=== PATIENT | female | born 1930 | race Caucasian/White ===

== ENCOUNTER 2016-08-14 14:53 | Emergency (ER) | payer MEDICARE ==
[~2016-08-14] VITALS: Ht 175.3 cm; Wt 68.0 kg
[~2016-08-14 14:53] MED LIST: HYDR-3326 PO; METO50TA3 PO; WARF2.5T6 PO; Zolpidem Tartrate PO
[2016-08-14 15:18] VITALS: BP 106/61
== END 2016-08-14 15:51 | disposition home or self-care (01) ==
LOC: ER 14:55
DX: H66.92 Otitis media, unspecified, left ear (principal); H60.92 Unspecified otitis externa, left ear; I10 Essential (primary) hypertension; I48.91 Unspecified atrial fibrillation; Z79.01 Long term (current) use of anticoagulants; Z79.02 Long term (current) use of antithrombotics/antiplatelets; Z86.73 Personal history of transient ischemic attack (TIA), and cerebral infarction without residual deficits
CPT/HCPCS: 99283; A4606; Z7610

== ENCOUNTER 2017-07-24 16:37 | Inpatient (IN) | payer MEDICARE ==
[~2017-07-24] VITALS: Ht 175.3 cm; Wt 75.0 kg
[2017-07-24] VITALS (7 sets, daily range): BP systolic 96–121; BP diastolic 56–67
[~2017-07-24 16:37] MED LIST changes: -HYDR-3326 PO; +HYDR-3974 PO; +METO50TA16 PO; -METO50TA3 PO; -WARF2.5T6 PO; +WARF2.5T85 PO
--- NOTE | 2017-07-24 16:43 | NUR ---
BIBRA C/O LEFT SIDED RIB PAIN S/P GLF ATTEMPTING TO SIT ON COMMODE. PATIENT IS A/OX 2, BREATHING EVEN AND UNLABORED. NO SOB, NAD, VITALS STABLE. NO OTHER COMPLAINTS AT THIS TIME. SAFETY AND COMFORT MEASURES IN PLACE. AWAITING MD ORDERS.
[2017-07-24] MEDS ORDERED: ACETAMINOPHEN W/ CODEINE#3 1 EA TABLET ONE (16:57)
--- NOTE | 2017-07-24 16:59 | NUR ---
PT MEDICATED PER MD'S ORDERS. PT RESTING IN BED WITH NO S/S OF DISTRESS NOTED. PT SAFETY AND COMFORT MEASURES IN PLACE. PT'S BEDSIDE. CALL LIGHT PLACED WITHIN REACH. BED PLACED IN LOWEST POSITION WITH SIDE RAILS RAISED. WILL CONTINUE TO MONITOR
[2017-07-24] MEDS ORDERED: ACETAMINOPHEN W/ CODEINE#3 1 EA TABLET PO ONE (17:00)
--- NOTE | 2017-07-24 17:19 | NUR ---
RADIOLOGY BEDSIDE FOR X-RAY
--- NOTE | 2017-07-24 17:35 | NUR ---
NEW IV STARTED ON RAC, 18G. BLOOD DRAWN AND SENT TO LAB.
[2017-07-24] MEDS ORDERED: ONDANSETRON HCL/PF 4 MG/2 ML VIAL ONE (17:36)
[2017-07-24] MEDS ORDERED: MORPHINE SULFATE INJ 4 MG/ML DISP.SYRIN ONE ×2 (17:36→19:27)
--- NOTE | 2017-07-24 17:37 | NUR ---
PT MEDICATED PER MD PRINCE'S ORDERS. PT RESTING IN BED WITH NO S/S OF DISTRESS NOTED.
[2017-07-24 17:38] LABS: BASOPHILS # (AUTO) 0.2 /CMM (0.0-0.2); BASOPHILS % (AUTO) 2.3 % (0.0-2.0); EOSINOPHILS % (AUTO) 0.4 % (0.0-6.0); HEMATOCRIT 46 % (33-45); HEMOGLOBIN 15.7 g/dL (11.5-14.8); LYMPHOCYTES # (AUTO) 0.8 /CMM (0.8-4.8); LYMPHOCYTES % (AUTO) 8.3 % (20.0-44.0); MEAN CORPUSCULAR HGB CONC 34 g/dl (31.0-36.0); MEAN CORPUSCULAR VOLUME 87 fL (82-100); MONOCYTES # (AUTO) 0.2 /CMM (0.1-1.30); MONOCYTES % (AUTO) 2.2 % (2.0-12.0); NEUTROPHILS # (AUTO) 8.1 /CMM (1.8-8.9); NEUTROPHILS % (AUTO) 86.8 % (43.0-81.0); PLATELET COUNT (AUTO) 117 /CMM (150-450); RDW COEFFICIENT OF VARIATION 13.8 (11.5-15.0); RED BLOOD CELL COUNT(AUTO) 5.34 MIL/uL (4.0-5.2); WHITE BLOOD COUNT (AUTO) 9.3 K/uL (4.3-11.0)
[2017-07-24] MEDS ORDERED: WARF3TAB59 PO (17:47)
[2017-07-24] MEDS ORDERED: METO25TA20 PO (17:47)
[2017-07-24 17:48] LABS: CARBON DIOXIDE 29 mmol/L (21-32); CHLORIDE 101 mmol/L (98-107); CREATININE 0.7 mg/dL (0.6-1.3); GLUCOSE 142 mg/dL (74-106); POTASSIUM 4.2 mmol/L (3.5-5.1); SODIUM SERUM 137 mmol/L (136-145); UREA NITROGEN, BLOOD 15 mg/dL (7-18)
[2017-07-24 17:52] LABS: INR 2.2 (0.85-1.15)
--- NOTE | 2017-07-24 17:52 | NUR ---
CALLED [facility] [employer] FLARING MACHINE OPERATOR WAS PAGED.
[2017-07-24] MEDS ORDERED: MORPHINE SULFATE INJ 2 MG/ML DISP.SYRIN IV ONE ×2 (18:00→20:00)
[2017-07-24] MEDS ORDERED: ONDANSETRON HCL/PF 4 MG/2 ML VIAL IVP ONE (18:00)
--- NOTE | 2017-07-24 18:04 | NUR ---
REPORT GIVEN TO RESEARCH MANUFACTURING OPERATOR FOR DERRICK
--- NOTE | 2017-07-24 18:17 | NUR ---
RECEIVED CALL FROM RADIOLOGIST, DR PRINCE ON PHONE WITH THE RADIOLOGIST
--- NOTE | 2017-07-24 18:20 | NUR ---
PER MD, CHEST TUBE DRAINAGE SETUP IR REQUIRED. EMT'S NOTIFIED TO SET UP KIT BEDSIDE.
--- NOTE | 2017-07-24 18:25 | NUR ---
CHEST TUBE SETUP BEDSIDE. DR SANTO BEDSIDE WITH PT
[2017-07-24] MEDS ORDERED: ETOMIDATE 2 MG/ML VIAL ONE (18:29)
--- NOTE | 2017-07-24 18:40 | NUR ---
PT GIVEN TOTAL OF 10MG ETOMIDATE FOR CHEST TUBE INSERTION PER MD PRINCE. PT WAS PLACED ON NR 15L/M PRIOR TO PROCEDURE PER .
--- NOTE | 2017-07-24 18:50 | NUR ---
CHEST TUBE PERFORMED BY DR PRINCE. PER ' ETOMIDATE USED DURING PROCEDURE. PER MD, NO RESPIRATORY THERAPIST REQUIRED. TOTAL OF 10MG OF ETOMIDATE GIVEN TO PT PER MD PRINCE'S ORDERS. SUCCESSFUL CHEST TUBE INSERTION. RADIOLOGY BEDSIDE FOR CHEST X-RAY. CHEST TUBE SECURED TO PT. CHEST TUBE DRAINAGE SET UP AND HANGING BELOW PT'S LEVEL ON THE SIDE OF BED. 200ML OF BRIGHT RED BLOOD DRAINED OUT INTO DRAINAGE SYSTEM. MD MADE AWARE. PT SAFETY AND COMFORT MEASURES IN PLACE. SIDE RAILS RAISED. VSS. WILL CONTINUE TO MONITOR.
[2017-07-24] MEDS ORDERED: MORPHINE SULFATE INJ 2 MG/ML DISP.SYRIN IV PRN (19:00)
[2017-07-24] MEDS ORDERED: ZOLPIDEM TARTRATE 5 MG TABLET PO PRN (19:00)
[2017-07-24] MEDS ORDERED: MORPHINE SULFATE INJ 2 MG/ML DISP.SYRIN IM PRN (19:00)
[2017-07-24] MEDS ORDERED: ETOMIDATE 2 MG/ML VIAL IV ONE (19:00)
[2017-07-24] MEDS ORDERED: ONDANSETRON HCL/PF 4 MG/2 ML VIAL IVP PRN (19:00)
[2017-07-24] MEDS ORDERED: MAG HYDROX/AL HYDROX/SIMETH 30 ML UDC PO PRN (19:00)
[2017-07-24] MEDS ORDERED: MAGNESIUM HYDROXIDE 30 ML UDC PO PRN (19:00)
[2017-07-24] MEDS ORDERED: Z GUARD REMEDY 2 OZ OINT TP PRN (19:00)
--- NOTE | 2017-07-24 19:30 | NUR ---
PER MD PRINCE, VERBAL ORDER FOR MORPHINE 4 MG IV REQUESTED TO BE GIVEN TO PT. PT MEDICATED PER MD'S ORDERS.
--- NOTE | 2017-07-24 19:38 | NUR ---
Patient is resting comfortably in bed with eyes closed. Easily aroused. VSS.
--- NOTE | 2017-07-24 20:04 | NUR ---
REPORT GIVEN TO ACQUISITION LEAD ARA FOR DERRICK.
--- NOTE | 2017-07-24 20:18 | NUR ---
GEODETIC SURVEYOR TECHNOLOGISTHISTOTECHNICIAN NOTES RECEIVED PATIENT FROM ER VIA GURNEY, TRANSFERRED TO BED IN ROOM 261. PATIENT PLACED ON TELEMETRY MONITORING, REVEALING AFIB/AFLUTTER, HR = 130 AT THIS TIME. BREATHING EVEN AND NONLABORED, O2 PLACED VIA NC @ 2LPM. NOTED WITH LEFT SIDED, ANTERIOR CHEST TUBE, CONNECTED TO SUCTION ORDERED. SITE ASSESSED, DRESSING C/D/I. RIGHT AC #18 GAUGE PERIPHERAL IV FLUSHED WITH NS, SITE FREE FROM ANY S/S OF INFILTRATION OR PHLEBITIS. PLAN OF CARE DISCUSSED WITH THE PATIENT, WHO VERBALIZES UNDERSTANDING AT THIS TIME. CALL LIGHT LEFT WITHIN EASY REACH, BED IN LOWEST AND LOCKED POSITION. WILL CONTINUE TO CLOSELY MONITOR
[2017-07-24] MEDS: FENTANYL PF 100MCG/2ML AMPUL IV PRN (21:25)
[2017-07-25] VITALS (41 sets, daily range): BP systolic 85–123; BP diastolic 38–72
[2017-07-25] MEDS: FENTANYL PF 100MCG/2ML AMPUL IV PRN ×3 (03:15→12:58)
[2017-07-25 04:58] LABS: CALCIUM, SERUM 8.5 mg/dL (8.5-10.1); CARBON DIOXIDE 26 mmol/L (21-32); CHLORIDE 104 mmol/L (98-107); CREATININE 0.7 mg/dL (0.6-1.3); GLUCOSE 132 mg/dL (74-106); MAGNESIUM 2.1 mg/dL (1.8-2.4); PHOSPHORUS 4.1 mg/dL (2.5-4.9); POTASSIUM 4.3 mmol/L (3.5-5.1); SODIUM SERUM 137 mmol/L (136-145); UREA NITROGEN, BLOOD 17 mg/dL (7-18)
[2017-07-25 05:28] LABS: INR 2.21 (0.87-1.13)
[2017-07-25 05:50] LABS: EOSINOPHILS % (AUTO) 0.1 % (0.0-6.0); HEMOGLOBIN 13.6 g/dL (11.5-14.8); LYMPHOCYTES # (AUTO) 0.5 /CMM (0.8-4.8); PLATELET COUNT (AUTO) 79 /CMM (150-450)
[2017-07-25 06:01] LABS: BASOPHILS % (AUTO) 0.1 % (0.0-2.0); HEMATOCRIT 39 % (33-45); MEAN CORPUSCULAR HGB CONC 35 g/dl (31.0-36.0); MEAN CORPUSCULAR VOLUME 87 fL (82-100); MONOCYTES # (AUTO) 0.9 /CMM (0.1-1.30); MONOCYTES % (AUTO) 10.1 % (2.0-12.0); NEUTROPHILS # (AUTO) 7.3 /CMM (1.8-8.9); NEUTROPHILS % (AUTO) 83.7 % (43.0-81.0); RDW COEFFICIENT OF VARIATION 14.6 (11.5-15.0); RED BLOOD CELL COUNT(AUTO) 4.52 MIL/uL (4.0-5.2); WHITE BLOOD COUNT (AUTO) 8.8 K/uL (4.3-11.0)
[2017-07-25 06:05] LABS: LYMPHOCYTES % (MANUAL) 3 % (16-48); MONOCYTES % (MANUAL) 9 % (0-11.0); NEUTROPHILS % (MANUAL) 88 (42-76)
--- NOTE | 2017-07-25 07:00 | NUR ---
BUHR MILL OPERATOR CLOSING NOTES PATIENT SLEEPING IN BED, APPEARS COMFORTABLE. NO ACUTE CHANGES THROUGHOUT THE SHIFT, PAIN MANAGED WITH CURRENT ORDERS. WILL ENDORSE THE PATIENT TO THE AM SHIFT NURSE FOR DERRICK
[2017-07-25] MEDS: METOPROLOL TARTRATE 25 MG TABLET PO SCH ×2 (08:28→17:46)
[2017-07-25] MEDS: IV NS 0.9% 1,000 ML IV PRN (09:50)
[2017-07-25 10:42] LABS: THYROID STIMULATING HORMONE 3.765 uIU/mL (0.358-3.74)
[2017-07-25] MEDS: DIGOXIN 0.25 MG TABLET PO SCH (12:56)
[2017-07-25] MEDS: HYDROMORPHONE HCL 2 MG TABLET PO PRN ×2 (14:39→21:09)
--- NOTE | 2017-07-25 16:23 | NUR ---
RN NOTE PT CHEST TUBE IN PLACE, DRAINING BLOODY FLUID, TO LIS, PAIN MEDICINE CHANGED TO DILAUDID, 4 MG PO, 2 UNITS PLASMA ORDERED, 1 INFUSED, TOLERATED WELL, 2ND UNIT IS INFUSING. PT HAD NO URINE OUTPUT SINCE MORNING, BLADDER SCAN SHOWED RESIDUAL OF >700 ML, MARTINEZ CATH INSERTED, MD NOTIFIED. SAFETY MEASURES IMPLEMENTED, CALL LIGHT WITHIN REACH, WILL MONITOR.
--- NOTE | 2017-07-25 17:00 | NUR ---
RN NOTE REPORT GIVEN TO DAVIN HOLLAND, FOR DERRICK. PT STABLE.
--- NOTE | 2017-07-25 19:07 | NUR ---
RN NOTES PT RESTING IN BED COMFORTABLY, VERBALIZED PAIN RELIEF AFTER DILAUDID PRN WAS GIVEN TO HER. AFIB ON DYEING MACHINE TENDER. NO LEAKING NOTED ON CHEST TUBE DRAINAGE SITE. S/P 2 UNITS FFP GIVEN, NO TRANSFUSION REACTION NOTED. ALL DUE MEDS GIVEN, PT WITH POOR PO INTAKE. REPORT GIVEN TO NURSE JAIMES FOR CONTINUITY OF CARE
--- NOTE | 2017-07-25 20:30 | NUR ---
ICU/WEB PROJECT MANAGER STARTED NEW IV TO THE LEFT EXTERNAL JUGULAR, FLUSHES WELL.
--- NOTE | 2017-07-25 21:09 | NUR ---
ICU/DIGITAL LEARNING PLATFORMS MANAGER DILAUDID 4MG PO GIVEN FOR PAIN RATED 10/10 TO CHEST TUBE SITE. CALL LIGHT WITHIN REACH, PT WAS REPOSITIONED FOR COMFORT AND CARE.
[2017-07-26] VITALS (60 sets, daily range): BP systolic 59–152; BP diastolic 40–85
[2017-07-26] MEDS: IV NS 0.9% 1,000 ML IV PRN ×3 (00:04→18:44)
[2017-07-26] MEDS: HYDROMORPHONE HCL 2 MG TABLET PO PRN (03:20)
--- NOTE | 2017-07-26 03:30 | NUR ---
ICU/MICROBIOLOGY QUALITY CONTROL TECHNICIAN DILAUDID 4MG WAS GIVEN POST BATH, PT WAS YELLING AND CRYING AFTER BATH. PT ALSO HAD INCREASE HEART RATE 150'S. PT WAS TURNED AND REPOSITIONED FOR COMFORT AND CARE.
--- NOTE | 2017-07-26 04:10 | NUR ---
ICU/SALARY MANAGER PT'S SATURATION FELL TO 70'S WITH GOOD WAVE FORM, NON-REBREATHER MASK PLACED ON PT ALSO CHANGED OUT THE O2 PULSE OX. WILL CONTINUE TO MONITOR THIS PT.
[2017-07-26 04:36] LABS: BASOPHILS % (AUTO) 0.1 % (0.0-2.0); EOSINOPHILS % (AUTO) 0.1 % (0.0-6.0); HEMATOCRIT 32 % (33-45); HEMOGLOBIN 11.2 g/dL (11.5-14.8); LYMPHOCYTES # (AUTO) 0.5 /CMM (0.8-4.8); LYMPHOCYTES % (AUTO) 4.9 % (20.0-44.0); MEAN CORPUSCULAR HGB CONC 35 g/dl (31.0-36.0); MEAN CORPUSCULAR VOLUME 88 fL (82-100); MONOCYTES # (AUTO) 0.9 /CMM (0.1-1.30); NEUTROPHILS # (AUTO) 8.7 /CMM (1.8-8.9); NEUTROPHILS % (AUTO) 85.9 % (43.0-81.0); PLATELET COUNT (AUTO) 113 /CMM (150-450); RED BLOOD CELL COUNT(AUTO) 3.65 MIL/uL (4.0-5.2); WHITE BLOOD COUNT (AUTO) 10.1 K/uL (4.3-11.0)
--- NOTE | 2017-07-26 04:45 | NUR ---
ICU/SPECIAL EVENTS FUNDRAISER AM LABS WERE DRAWN AND CHEST XRAY WAS DONE, AWAIT LAB VALUES.
[2017-07-26 04:52] LABS: ALANINE AMINOTRANSFERASE 47 U/L (12-78); ALKALINE PHOSPHATASE 56 U/L (46-116); ASPARTATE AMINOTRANSFERASE 44 U/L (15-37); BILIRUBIN,TOTAL 1.4 mg/dL (0.2-1.0); CALCIUM, SERUM 8.1 mg/dL (8.5-10.1); CARBON DIOXIDE 29 mmol/L (21-32); CHLORIDE 104 mmol/L (98-107); CREATININE 0.6 mg/dL (0.6-1.3); GLUCOSE 129 mg/dL (74-106); MAGNESIUM 2.1 mg/dL (1.8-2.4); PHOSPHORUS 2.8 mg/dL (2.5-4.9); POTASSIUM 4.4 mmol/L (3.5-5.1); SODIUM SERUM 138 mmol/L (136-145); TOTAL PROTEIN, SERUM 6.6 g/dL (6.4-8.2); UREA NITROGEN, BLOOD 20 mg/dL (7-18)
--- NOTE | 2017-07-26 05:55 | NUR ---
ICU/FIELD REPRESENTATIVE/HEALTH EDUCATION CHANGED PT FROM NON-REBREATHER MASK TO A SIMPLE MASK, PT'S SATURATION IS 100%. WILL CONTINUE TO MONITOR PT'S SATURATION. PT WAS TURNED AND REPOSITIONED FOR COMFORT AND CARE.
--- NOTE | 2017-07-26 07:15 | NUR ---
MEAT BUTCHER NOTES RECEIVED PATIENT UNAROUSABLE TO DEEP PAIN STIMULI , ON 7 LPM SIMPLE MASK SPO2 OF 100% NOT IN ACUTE DISTRESS , RESPIRATIONS EVEN AND UNLABORED , AFIB 130'S ON BEDSIDE MONITOR , FC DRAINING VIA GRAVITY WITH CLEAR YELLOW URINE , IV OF L EJ # 20 WITH NS @ 125ML/HR INFUSING WELL , R AC # 18 PATENT AND INTACT SL , ALL NEEDS ATTENDED , BED ON LOW AND LOCKED POSITION , SIDE RAILS X2 ,CALL LIGHT WITHIN REACH , HOB @ 35 , WILL CONTINUE TO MONITOR .
--- NOTE | 2017-07-26 07:50 | NUR ---
INSPECTOR OF WEIGHTS AND MEASURES NOTES PATIENT REMAINS UNRESPONSIVE TO DEEP PAIN STIMULI , ABG ORDERED , RT AT BEDSIDE, WILL CONTINUE TO MONITOR
[2017-07-26 08:03] LABS: ABG BASE EXCESS -2.3 mmol/L; ABG OXYGEN SATURATION 98.2 % (92.0-98.5); ABG PCO2 144.2 mmHg (35.0-45.0); ABG PH 6.974 (7.350-7.450); AaDO2 83.2 mmHg; COHb 0.2 % (0.5-1.5); MetHb 1.2 % (0.0-1.5); O2Hb 96.8 % (94.0-97.0); SITE, ABG Right Radial; VENT MODE, BG simple mask
--- NOTE | 2017-07-26 08:10 | NUR ---
RECYCLABLE MATERIALS COLLECTOR NOTES ABG RESULT RELAYED TO DR BYRNE , NOTIFIED PATIENT V/S AND NEUROLOGICAL STATUS , AWAITING FOR ORDERS
--- NOTE | 2017-07-26 08:30 | NUR ---
ED MANAGER NOTES 0830 CALLED ER MD FOR INTUBATION DUE TO ABNORMAL ABG , 0835 ER MD AT BEDSIDE , DISCUSSED LABS , ABG RESULT , AND REASON FOR INTUBATION , RT SABI AT BEDSIDE , WAS PLACED SUCCESSFULLY BY ER MD , PLACEMENT CHECK VIA AUSCULTATION POSITIVE BREATH SOUNDS BILATERALLY POSITIVE END TIDAL CO2 , XRAY STAT OBTAINED TO CONFIRM PLACEMENT SPO2 OF 100% VIA MECHANICAL VENT SETTINGS ORDERED , SUCTION SMALL THIN SECRETIONS PINK TINGED IN COLOR , BILATERAL SOFT WRIST RESTRAINTS PLACED ORDERED . OGT PLACED , PLACEMENT CHECK VIA AUSCULTATION VERIFIED BY ANOTHER RN BEATRIZ .
--- NOTE | 2017-07-26 09:47 | NUR ---
DATE PITTER NOTES PAGED DR SANTO DUE TO SBP OF 60-70'S S/P INTUBATION , AWAITING FOR CALL BACK
--- NOTE | 2017-07-26 09:49 | NUR ---
HOUSEHOLD COOK NOTES SPOKE WITH DR OLCK , DISCUSSED PT S/P INTUBATION , SBP OF 60-70'S , HR OG 105-130 AFIB , PER MD START PT ON NEOSYNEPRINE TO KEEP SBP ABOVE 90 AND PICCLINE / CENTRAL LINE INSERTION , ORDERS CARRIED OUT
--- NOTE | 2017-07-26 10:12 | NUR ---
BREAKER OILER NOTES SEEN AND EVALUATED BY DR SANTO ,DISCUSSED LABS , CHEST XRAY RESULT , CURRENT V/S , WILL START PT ON NEOSYNEPRINE DUE TO SBP OF 60-[address] LOCK , LEFT SIDED CHEST TUBE DRAINING VIA -20 SUCTION DRAINING WITH BLOODY OUTPUT , S/P INTUBATION DISCUSSED ABG RESULTS ON 7LPM MASK , PT WAS NON RESPONSIVE @ 0700 , PER MD REPEAT CBC STAT .
[2017-07-26 10:22] LABS: ABG BASE EXCESS -1.8 mmol/L; ABG OXYGEN SATURATION 98.5 % (92.0-98.5); ABG PCO2 36.8 mmHg (35.0-45.0); ABG PH 7.405 (7.350-7.450); ABG PO2 178.7 mmHg (75.0-100.0); AaDO2 136.4 mmHg; COHb 0.3 % (0.5-1.5); MetHb 0.4 % (0.0-1.5); O2Hb 97.8 % (94.0-97.0); SITE, ABG Right Radial; VT, ABG 500 mL
[2017-07-26] MEDS: PHENYLEPHRINE 40 MG in IV D5W 250 ML IV PRN ×2 (10:26→18:44)
[2017-07-26 10:34] LABS: HEMATOCRIT 32 % (33-45); HEMOGLOBIN 10.6 g/dL (11.5-14.8); LYMPHOCYTES # (AUTO) 0.6 /CMM (0.8-4.8); LYMPHOCYTES % (AUTO) 4.7 % (20.0-44.0); MEAN CORPUSCULAR HGB CONC 34 g/dl (31.0-36.0); MEAN CORPUSCULAR VOLUME 89 fL (82-100); MONOCYTES # (AUTO) 1.7 /CMM (0.1-1.30); MONOCYTES % (AUTO) 13.1 % (2.0-12.0); NEUTROPHILS # (AUTO) 10.5 /CMM (1.8-8.9); NEUTROPHILS % (AUTO) 82.2 % (43.0-81.0); PLATELET COUNT (AUTO) 107 /CMM (150-450); RED BLOOD CELL COUNT(AUTO) 3.53 MIL/uL (4.0-5.2); WHITE BLOOD COUNT (AUTO) 12.8 K/uL (4.3-11.0)
[2017-07-26] MEDS: METOPROLOL TARTRATE 25 MG TABLET PO SCH ×2 (10:41→16:36)
--- NOTE | 2017-07-26 11:04 | NUR ---
DIRECTOR OF GRADUATE ADMISSIONS NOTES SEEN AND EVALUATED BY DR BYRNE , DISCUSSED ABG RESULT PRE AND POST INTUBATION , REPEAT CBC RESULT , AND CURRENT VENT SETTINGS , PER MD CHANGE SETTINGS TO RATE OF 10 TV 450 FIO2 TITRATE TO KEEP SPO2 ABOVE 94 AND PEEP OF 0 ,CHEST TUBE DRAINING WITH BLOODY OUTPUT VIA -20 INT SUCTION , ORDERS CARRIED OUT .
[2017-07-26] MEDS: DIGOXIN 0.25 MG TABLET PO SCH (13:34)
[2017-07-26] MEDS: SOD FERRIC GLUC 125 MG in IV NS 0.9% 100 ML IV SCH (14:28)
--- NOTE | 2017-07-26 15:00 | NUR ---
JEWEL STRIPPER NOTES NOTIFIED DR SANTO THAT PT HAVING LOW URINE OUTPUT TOTAL OF 50-70ML SINCE 0700 VIA FC , PT ON NS @ 75ML/HR , BLADDER NOT DISTENDED , MD AWARE . NO NEW ORDERS RECEIVED VERIFIED WITH DR BYRNE IF HE WANTS TO START SEDATING THE PATIENT , WHEN PT IS AWAKE , PER MD START PT ON ATIVAN 1MG Q3 PRN , ORDERS CARRIED OUT PICC LINE NURSE AT BEDSIDE , FOR PICC RE INSERTION
[2017-07-26] MEDS: LORAZEPAM INJ 2 MG/ML VIAL IV PRN (17:47)
--- NOTE | 2017-07-26 19:42 | NUR ---
sarmad pt. blood tinged secretions. dora hayward aware. Addendum: 07/26/17 at 2118 by SANJEEV SCHWARTZ RT Amended: Links added.
--- NOTE | 2017-07-26 19:45 | NUR ---
PT RCVD ORALLY INTUBATED WITH 7.5 ET TUBE 25CM @ LIP. PT ON MECHANICAL VENT. SUCTION DONE T/O SHIFT. AMBU BAG AT BEDSIDE. VENT PLUGGED INTO RED OUTLET. ALARMS ARE ON AND AUDIBLE. Addendum: 07/27/17 at 0237 by SANJEEV SCHWARTZ RT Amended: Links added.
--- NOTE | 2017-07-26 22:38 | NUR ---
ICU/BOARD OPERATOR PT'S BLOOD PRESSURE STABLE REMAINS AT 120'S FOR THE HOUR, CHARGE NURSE NOTIFIED DECREASED DAE TO 20MCG FROM 30MCG BY CHARGE NURSE. WILL CONTINUE TO MONITOR THIS PT. PT WAS TURNED AND REPOSITIONED FOR COMFORT AND CARE.
[2017-07-27] VITALS (92 sets, daily range): BP systolic 78–135; BP diastolic 37–86
[2017-07-27] MEDS: HYDROMORPHONE HCL 2 MG TABLET PO PRN (01:17)
--- NOTE | 2017-07-27 01:39 | NUR ---
ICU/CASINO SLOT SUPERVISOR PT'S HEART RATE INCREASED TO 120'S TO 130'S, PT APPEARED TO BE IN PAIN, DILAUDID 4MG GIVEN VIA O-GT. PT WAS TURNED AND REPOSITIONED FOR COMFORT AND CARE. WILL MONITOR PT PAIN
--- NOTE | 2017-07-27 03:50 | NUR ---
ICU/WEB DESIGNER DEVELOPER AM LABS WERE DRAWN ALONG WITH CHEST XRAY, AWAIT ANY CRITICAL LAB VALUES
[2017-07-27 04:34] LABS: BASOPHILS % (AUTO) 0.1 % (0.0-2.0); EOSINOPHILS % (AUTO) 0.1 % (0.0-6.0); HEMATOCRIT 28 % (33-45); HEMOGLOBIN 9.7 g/dL (11.5-14.8); LYMPHOCYTES # (AUTO) 0.5 /CMM (0.8-4.8); LYMPHOCYTES % (AUTO) 5.9 % (20.0-44.0); MEAN CORPUSCULAR HGB CONC 35 g/dl (31.0-36.0); MEAN CORPUSCULAR VOLUME 87 fL (82-100); MONOCYTES % (AUTO) 10.7 % (2.0-12.0); NEUTROPHILS # (AUTO) 7.5 /CMM (1.8-8.9); NEUTROPHILS % (AUTO) 83.2 % (43.0-81.0); PLATELET COUNT (AUTO) 94 /CMM (150-450); RDW COEFFICIENT OF VARIATION 14.8 (11.5-15.0); RED BLOOD CELL COUNT(AUTO) 3.21 MIL/uL (4.0-5.2)
[2017-07-27 04:59] LABS: CALCIUM, SERUM 7.7 mg/dL (8.5-10.1); CARBON DIOXIDE 25 mmol/L (21-32); CHLORIDE 105 mmol/L (98-107); CREATININE 1.7 mg/dL (0.6-1.3); GLUCOSE 123 mg/dL (74-106); MAGNESIUM 1.9 mg/dL (1.8-2.4); PHOSPHORUS 2.7 mg/dL (2.5-4.9); POTASSIUM 4.1 mmol/L (3.5-5.1); SODIUM SERUM 139 mmol/L (136-145); UREA NITROGEN, BLOOD 40 mg/dL (7-18)
[2017-07-27] MEDS: LORAZEPAM INJ 2 MG/ML VIAL IV PRN (05:19)
--- NOTE | 2017-07-27 05:30 | NUR ---
ICU/WOODWORKING CRAFTSMAN PT BECAME RESTLESS WITH INCREASED HEART RATE TO 130'S AFTER RT WAS IN ROOM GIVING BREATHING TREATMENT ALONG WITH ORAL CARE. CHARGE NURSE NOTIFIED AND ATIVAN 1MG GIVEN IVP. PT WAS THEN TURNED AND REPOSITIONED FOR COMFORT AND CARE. WILL MONITOR THIS PT.
--- NOTE | 2017-07-27 06:10 | NUR ---
ICU/SWITCH REPAIRER PT'S BLOOD PRESSURE DECREASED TO 70'S THEN RECYCLED TO 80'S, NOTIFIED CHARGE NURSE DAE WAS INCREASED TO 40MCG. WILL CONTINUE TO MONITOR THE BLOOD PRESSURE. PT AT THE TIME HAS NO ACUTE DISTRESS, APPEARS MORE COMFORTABLE WITH HEART RATE 80'S TO 90'S FROM EARLIER 120'S.
[2017-07-27] MEDS: IV NS 0.9% 1,000 ML IV PRN ×2 (06:12→16:03)
[2017-07-27 06:34] LABS: INR 1.49 (0.87-1.13)
--- NOTE | 2017-07-27 07:15 | NUR ---
RAYON WINDER NOTES RECEIVED PATIENT RESPONSIVE TACTILE STIMULI , SQUIRMING, NOT IN ACUTE DISTRESS , RESPIRATIONS EVEN AND UNLABORED WITH SPO2 OF 100% VIA MECHANICAL VENT SETTINGS ORDERED , ETT 7.5/[address] , LEFT SIDED CHEST TUBE DRAINING VIA NEGATIVE 20 SUCTION ATTACHED TO LOW INTERMITTENT WALL SUCTION ORDERED DRAINING WITH BLOODY OUTPUT , DYLAN CLAMP AT BESIDE , AFIB 85 ON BEDSIDE MONITOR , FC DRAINING VIA GRAVITY WITH CLEAR YELLOW URINE , IV OF L EJ # 20 PATENT AND INTACT SL , ЕКАТЕРИНА PICC LINE WITH NEOSYNPERINE @ 40MCG/MIN AND NS @ 75ML/HR INFUSING WELL , ALL NEEDS ATTENDED , BED ON LOW AND LOCKED POSITION , SIDE RAILS X2 ,CALL LIGHT WITHIN REACH , HOB @ 35 , WILL CONTINUE TO MONITOR
--- NOTE | 2017-07-27 07:17 | NUR ---
FALL INTERNSHIP NOTES SEEN AND EVALUATED BY DR LOCK , NOTIFIED PT STILL ON NEOSYNEPRINE @ 40MCG/MIN , PATIENT AWAKE FOLLOW COMMANDS , WITH LOW URINE OUTPUT , AWARE
[2017-07-27] MEDS: METOPROLOL TARTRATE 25 MG TABLET PO SCH (08:20)
--- NOTE | 2017-07-27 09:09 | NUR ---
CARPET JACK NOTES SEEN AND EVALUATED BY DR SANTO , DISCUSSED LABS , CHEST XRAY , CURRENT V/S AFEBRILE , ON NEOSYNEPRIBNE @ 40MCG/MIN , URINE OUTPUT OF 200ML FOR 24 HOURS , CHEST TUBE DRAINING VIA NEGATIVE 20 VIA LOW INT SUCTION WALL , TOTAL OF 200ML BLOODY OUTPUT FOR 24 HOURS , BILATERAL FOOT COLD TO TOUCH WITH DISCOLORATIONS BILATERAL DORSALIS PEDIS PULSES ARE PALPABLE , AWARE
--- NOTE | 2017-07-27 10:37 | NUR ---
REEL AND REWINDER OPERATOR NOTES SEEN AND EVALUATED BY DR BYRNE , DISCUSSED LABS , CHEST XRAY AND CURRENT V/S , AFEBRILE , ON NEOSYNEPRINE @ 40MCG/MIN , RESPONSIVE TO PAIN STIMULI , UNABLE TO DO SIMV PT IS TOO SEDATED LAST ATIVAN GIVEN WAS AT 0520AM , CHEST TUBE DRAINING TOTAL OF 200ML BLOODY OUTPUT FOR 24 HOURS , LOW URINE OUTPUT , PER MD MARTINEZ ATIVAN , DILAUDID PO AND FENTANYL , START PT ON DILAUDID 1MG IV Q4 PRN , AND IF PT IS MORE AWAKE START SIMV MODE , ORDERS CARRIED OUT
[2017-07-27] MEDS: DIGOXIN 0.25 MG TABLET PO SCH (12:15)
[2017-07-27] MEDS: SOD FERRIC GLUC 125 MG in IV NS 0.9% 100 ML IV SCH (14:37)
--- NOTE | 2017-07-27 16:19 | NUR ---
HEAD FILTER PRESS TENDER NOTES NOTIFIED DR SANTO THAT PT HAS NO PPI , RECEIVED TO ORDER OF PROTONIX 40MG IV DAILY
[2017-07-27] MEDS: PANTOPRAZOLE 40 MG VIAL IV SCH (16:48)
--- NOTE | 2017-07-27 18:20 | NUR ---
PLOWING GARDENS NOTES NOTIFIED DR LOCK REGARDING HR OF PT , AFIB RVR 130-140'S BP OF 135/68 , ON NS @ 125M/HR , AFEBRILE , NO SIGNS OF PAIN , SEDATED , MD AWARE , AWAITING FOR ORDERS .
[2017-07-27] MEDS: HYDROMORPHONE INJ 2 MG/ML DISP.SYRIN IV PRN (18:49)
--- NOTE | 2017-07-27 19:30 | NUR ---
ICU/ER MANAGER WHILE SUCTIONING PT NOTICED THAT THERE BRIGHT RED BLOOD IN LINE IN ETT TUBE, WELL WHEN GIVING ORAL CARE. WILL ADD PT AND INR TO AM LABS.
--- NOTE | 2017-07-27 19:37 | NUR ---
PT RECEIVED ORALLY INTUBATED WITH A 7.5 ETT SECURED AT 25 CM AT THE LIP LINE. PT IS ON THE VENT WITH NOTED SETTINGS VENT ALARMS SET AND AUDIBLE. VENT IS PLUGGED INTO RED OUTLET. TRIM MASTER OPERATOR CUFF PRESSURE NOTED. SUCTIONED MODERATE AMOUNT OF BLOODY SECRETIONS. NO RESPIRATORY DISTRESS NOTED AT THIS TIME, WILL CONTINUE TO MONITOR THE PT. Addendum: 07/28/17 at 0427 by ASH BEARDEN RT DURING 1ST ROUND NOTED BLOODY SECRETIONS IN THE CANNISTER. DAVIN JAIMES NOTIFIED
[2017-07-27] MEDS: PHENYLEPHRINE 40 MG in IV D5W 250 ML IV PRN (19:38)
--- NOTE | 2017-07-27 19:45 | NUR ---
ICU/WELDER APPRENTICE PT'S BLOOD PRESSURE IS IN THE 80'S, NOTIFIED CHARGE NURSE DAE WAS STARTED FOR THIS. WILL CONTINUE TO MONITOR PT'S BLOOD PRESSURE. PT WAS TURNED AND REPOSITIONED FOR COMFORT AND CARE.
--- NOTE | 2017-07-27 20:30 | NUR ---
ICU/CONFIGURATION MANAGEMENT SPECIALIST PT'S BLOOD PRESSURE IS 117/53, NOTIFIED CHARGE NURSE DAE WAS DECREASED TO 30MCG FRO 40 MCG WHEN STATED. WILL CONTINUE TO MONITOR PT'S BLOOD PRESSURE. NO ACUTE DISTRESS SEEN AT THIS TIME, PT APPEARS TO BE RESTING COMFORTABLE
[2017-07-27] MEDS: ACETAMINOPHEN 325 MG TABLET PO PRN (21:34)
--- NOTE | 2017-07-27 21:36 | NUR ---
ICU/NOC ENGINEER PT'S TEMP IS 100.2 ORALLY, TYLENOL 650MG GIVEN VIA O/G TUBE. WILL CONTINUE TO MONITOR PT'S TEMP. AM LABS ARE ORDERED FOR THIS PT. AM WBC WAS 9.0
--- NOTE | 2017-07-27 23:15 | NUR ---
ICU/EXTRACT WRINGER PT'S BLOOD PRESSURE WAS 80'S FOR A FEW CYCLES, NOTIFIED CHARGE NURSE WHO INCREASED THE DAE TO 40MCG FROM 30. WILL CONTINUE TO MONITOR THIS PT AND THE BLOOD PRESSURE. PT WAS TURNED AND REPOSITIONED FOR COMFORT AND CARE.
[2017-07-28] VITALS (49 sets, daily range): BP systolic 86–150; BP diastolic 38–120
[2017-07-28] MEDS: IV NS 0.9% 1,000 ML IV PRN ×2 (00:02→08:27)
--- NOTE | 2017-07-28 04:10 | NUR ---
ICU/WINTER SPORTS MANAGER PT APPEARED TO BE IN SOME PAIN, TYLENOL GIVEN VIA G/TUBE. ALSO AM LABS WERE DRAWN AND XRAY DONE.AWAIT ANY CRITICAL LAB VALUES.
[2017-07-28] MEDS: ACETAMINOPHEN 325 MG TABLET PO PRN (04:43)
[2017-07-28] MEDS: HYDROMORPHONE INJ 2 MG/ML DISP.SYRIN IV PRN ×4 (05:08→23:50)
[2017-07-28 05:19] LABS: BASOPHILS % (AUTO) 0.1 % (0.0-2.0); HEMATOCRIT 27 % (33-45); HEMOGLOBIN 9.4 g/dL (11.5-14.8); LYMPHOCYTES # (AUTO) 0.4 /CMM (0.8-4.8); LYMPHOCYTES % (AUTO) 5.2 % (20.0-44.0); MEAN CORPUSCULAR HGB CONC 35 g/dl (31.0-36.0); MEAN CORPUSCULAR VOLUME 87 fL (82-100); MONOCYTES # (AUTO) 0.8 /CMM (0.1-1.30); MONOCYTES % (AUTO) 9.3 % (2.0-12.0); NEUTROPHILS % (AUTO) 85.4 % (43.0-81.0); PLATELET COUNT (AUTO) 110 /CMM (150-450); RDW COEFFICIENT OF VARIATION 14.6 (11.5-15.0); RED BLOOD CELL COUNT(AUTO) 3.14 MIL/uL (4.0-5.2); WHITE BLOOD COUNT (AUTO) 8.2 K/uL (4.3-11.0)
--- NOTE | 2017-07-28 05:26 | NUR ---
ICU/FIELD MECHANICAL METER TESTER PT'S HEART RATE 150'S TO 140'S, NOTIFIED CHARGE NURSE WHO GAVE DILAUDID 1MG IVP FOR THIS. PT WAS TURNED AND REPOSITIONED FOR COMFORT AND CARE. WILL CONTINUE TO MONITOR PT'S PAIN AND HEART RATE.
[2017-07-28 05:45] LABS: INR 1.44 (0.87-1.13)
[2017-07-28 05:48] LABS: ALANINE AMINOTRANSFERASE 34 U/L (12-78); ALBUMIN 2.1 g/dL (3.4-5.0); ALKALINE PHOSPHATASE 49 U/L (46-116); ASPARTATE AMINOTRANSFERASE 45 U/L (15-37); CALCIUM, SERUM 7.6 mg/dL (8.5-10.1); CARBON DIOXIDE 23 mmol/L (21-32); CHLORIDE 105 mmol/L (98-107); GLUCOSE 116 mg/dL (74-106); MAGNESIUM 1.9 mg/dL (1.8-2.4); PHOSPHORUS 2.6 mg/dL (2.5-4.9); POTASSIUM 3.8 mmol/L (3.5-5.1); SODIUM SERUM 137 mmol/L (136-145); TOTAL PROTEIN, SERUM 5.4 g/dL (6.4-8.2); UREA NITROGEN, BLOOD 50 mg/dL (7-18)
[2017-07-28 05:51] LABS: TROPONIN I 0.038 ng/mL (0.00-0.056)
--- NOTE | 2017-07-28 06:11 | NUR ---
ICU/CARPENTER RAILCAR PT'S BLOOD PRESSURE WAS 80'S FOR A FEW CYCLES, NOTIFIED CHARGE NURSE WHO INCREASED THE DAE TO 50MCG FROM 40. WILL CONTINUE TO MONITOR THIS PT AND THE BLOOD PRESSURE. PT WAS TURNED AND REPOSITIONED FOR COMFORT AND CARE.
--- NOTE | 2017-07-28 06:15 | NUR ---
ICU/BEVELING MACHINE OPERATOR CHEST TUBE HAS NOT DRAINED ANYTHING DURING THE PAST 12 HRS, ALL TUBES AND CONNECTIONS ARE SECURE AND DRESSING IS CLEAN, DRY AND INTACT. AWAIT AM CHEST XRAY. PT'S SATURATION IS 100% TO 98%. THERE IS NO ACUTE DISTRESS SEEN AT THIS TIME.
--- NOTE | 2017-07-28 07:30 | NUR ---
ICU/RN: Pt in bed, eyes closed, no distress noted, breathing even and unlabored, L chest tube present, no output per noc RN, no leaks noted. OGT clamped, + placement. Pt awakens to tactile stimuli, moves to localized pain. A-fib on monitor. IVF infusing well through ЕКАТЕРИНА PICC line. FC with minimal output noted, irrigated, good flow noted, free of clots. Will cont to monitor pt status.
--- NOTE | 2017-07-28 07:44 | NUR ---
PT. RECEIVED ON [facility] VENT VIA 7.5 ET TUBE SECURED @ 23 CM C[facility] LIPS. VENT PARAMETERS BELLOW ORDER: AC 10 VT 450ML FIO2 40% NO PEEP B/S COARSE RHONCHI BILATERAL, SXN LARGE AMNT BLOOD TINGED SECRETIONS. VENT IS PLUGGED INTO RED OUTLET WITH ALARMS ON AND FUNCTIONING. AMBUBAG @ HOB Addendum: 07/28/17 at 1130 by CINTIA CASTELLON RT Amended: Links added.
--- NOTE | 2017-07-28 08:16 | NUR ---
WOUND CARE CONSULT: PT PRESENTS WITH IMMOBILITY, CURRENT MIN SCORE IS 11. CHEST TUBE NOTED TO LEFT CHEST. PT IS INTUBATED AT THIS TIME. RESOLVING REDNESS (BLANCHABLE) WITH PEELING SKIN TO SACRAL AREA AND DRY ABRASION TO RT EAR, PRESENT ON ADMISSION. RECOMMENDATIONS MADE FOR SKIN PROTECTION AND CARE. DISCUSSED WITH NURSING STAFF. PT ON FIRST STEP MATTRESS. ALL PRESSURE ULCER PREVENTION AND SKIN PROTECTION MEASURES IN PLACE. WILL SEE PRN. ARELLANO IN AGREEMENT WITH PLAN OF CARE. Addendum: 07/28/17 at 0820 by SOFY GONZALEZ WNDNU Amended: Links added.
--- NOTE | 2017-07-28 09:00 | NUR ---
ICU/RN: Dr Montes at bedside; updated on pt status, overnight events, decreased urine output. Minimal drainage overnight from Chest tube. Labs nay ARELLANO.
--- NOTE | 2017-07-28 13:00 | NUR ---
ICU/RN: Hygienic care and wound care rendered, tolerated well.
[2017-07-28] MEDS: DIGOXIN 0.25 MG TABLET PO SCH (13:42)
[2017-07-28] MEDS ORDERED: IV NS 0.9% 1,000 ML IV ONE (15:30)
[2017-07-28] MEDS: SOD FERRIC GLUC 125 MG in IV NS 0.9% 100 ML IV SCH (15:57)
[2017-07-28] MEDS: PANTOPRAZOLE 40 MG VIAL IV SCH (16:20)
[2017-07-28 17:13] LABS: APPEARANCE,URINE SL CLOUDY (CLEAR); BILIRUBIN,URINE 1+ (NEGATIVE); BLOOD, URINE 3+ Ery/uL (NEGATIVE); COLOR,URINE YELLOW (YELLOW); KETONES,URINE TRACE (NEGATIVE); LEUKOCYTE ESTERASE ,URINE 3+ (NEGATIVE); NITRITE, URINE NEGATIVE (NEGATIVE); PH,URINE 8.5 (5.0-8.0); PROTEIN,URINE 2+ mg/dl (NEGATIVE); UGLUCOSE NEGATIVE (NEGATIVE)
--- NOTE | 2017-07-28 17:30 | NUR ---
ICU/RN: Pt noted with facial grimacing, awake, unable to track, restless, crying. HR in 130-140's. Dilaudid administered for pain relief. Will reassess effectiveness accordingly.
[2017-07-28 17:34] LABS: CREATININE, URINE 128.7 MG/DL (30.0-125.0)
[2017-07-28 17:56] LABS: BACTERIA,URINE 4+ /HPF (None Seen); RBC,URINE 21-50 /HPF (0-2); SQUAMOUS EPITHELIAL CELL,UR Few /HPF (None Seen); WBC,URINE 51-80 /HPF (0-3)
[2017-07-28 18:29] LABS: EOSINOPHIL,URINE None Seen
--- NOTE | 2017-07-28 19:24 | NUR ---
OPERATIONAL ASSISTANT. INITIAL ASSESSMENT. RECEIVED THE PT REST ON THE BED, ORALLY INTUBATED. PT IS LETHARGIC, ETT 7.5.LIP 25CM,AC 10,TV 459,FIO2 40%. SAT 98%. IV RT UPPER ARM PICC LINE. IVF NS 125ML/H. OGT CLAMPED. NPO. HOB ELEVATED, FC PATENT. LT SIDE CHEST TUBE INTACT, NO AIR LEAKING NOTED. CHEST TUBE LOW INTERMITTENT SUCTION. WILL CONTINUE TO MONITOR VITALS.
--- NOTE | 2017-07-28 21:57 | NUR ---
PT RECEIVED ON VENT VIA CHARTED SETTINGS AND ROUTE. ALARMS SET AND AUDIBLE. DISCONNECT ALARMS CHECKED. VENT PLUGGED INTO RED OUTLET. AMBU BAG AT BEDSIDE. TOLERATING VENT SETTINGS AT THIS TIME Addendum: 07/28/17 at 2158 by MADELIN CARPIO RT Amended: Links added.
[2017-07-29] VITALS (56 sets, daily range): BP systolic 82–150; BP diastolic 32–81
[2017-07-29] MEDS: IV NS 0.9% 1,000 ML IV PRN ×2 (03:30→12:11)
--- NOTE | 2017-07-29 03:31 | NUR ---
SUPERINTENDENT FACTORY. AM CARE. ORAL CARE. BED BATH GIVEN. LINEN CHANGED. REMAINING SAME VENT SETTING TOLERATED WELL. SAT 99%. NO ACUTE DISTRESS NOTED. STAGE HAND SHOWING AFIB, UNCONTROLLED. HOB ELEVATED. GT CLAMPED. FC PATENT. JEWEL SOFT WRIST RESTRAINT CHECKED AND RELEASED, NO INJURY OR REDNESS NOTED. TURN AND REPOSITION Q2H. WILL CONTINUE TO MONITOR VITALS.
[2017-07-29 05:09] LABS: BASOPHILS % (AUTO) 0.1 % (0.0-2.0); EOSINOPHILS % (AUTO) 0.1 % (0.0-6.0); HEMATOCRIT 25 % (33-45); HEMOGLOBIN 8.6 g/dL (11.5-14.8); LYMPHOCYTES # (AUTO) 0.2 /CMM (0.8-4.8); LYMPHOCYTES % (AUTO) 4.9 % (20.0-44.0); MEAN CORPUSCULAR HGB CONC 35 g/dl (31.0-36.0); MEAN CORPUSCULAR VOLUME 87 fL (82-100); MONOCYTES # (AUTO) 0.4 /CMM (0.1-1.30); MONOCYTES % (AUTO) 11.7 % (2.0-12.0); NEUTROPHILS % (AUTO) 83.2 % (43.0-81.0); PLATELET COUNT (AUTO) 96 /CMM (150-450); RDW COEFFICIENT OF VARIATION 14.7 (11.5-15.0); RED BLOOD CELL COUNT(AUTO) 2.83 MIL/uL (4.0-5.2); WHITE BLOOD COUNT (AUTO) 3.6 K/uL (4.3-11.0)
[2017-07-29 05:27] LABS: CALCIUM, SERUM 7.7 mg/dL (8.5-10.1); CARBON DIOXIDE 19 mmol/L (21-32); CHLORIDE 108 mmol/L (98-107); CREATININE 1.9 mg/dL (0.6-1.3); GLUCOSE 91 mg/dL (74-106); MAGNESIUM 1.9 mg/dL (1.8-2.4); PHOSPHORUS 2.7 mg/dL (2.5-4.9); SODIUM SERUM 140 mmol/L (136-145); UREA NITROGEN, BLOOD 52 mg/dL (7-18)
--- NOTE | 2017-07-29 08:00 | NUR ---
Pt opens eye, but not interacting. vss at this time. will continue to monitor.
[2017-07-29 08:22] LABS: BAND % (MANUAL) 15 % (0.0-5.0); LYMPHOCYTES % (MANUAL) 1 % (16-48); METAMYELOCYTES % 1 % (0-0); MONOCYTES % (MANUAL) 8 % (0-11.0); MYELOCYTES % 1 % (0-0); NEUTROPHILS % (MANUAL) 74 (42-76)
[2017-07-29 10:32] LABS: ABG BASE EXCESS -9.1 mmol/L; ABG OXYGEN SATURATION 92.9 % (92.0-98.5); ABG PCO2 32.5 mmHg (35.0-45.0); ABG PH 7.314 (7.350-7.450); ABG PO2 73.8 mmHg (75.0-100.0); COHb 0.3 % (0.5-1.5); MetHb 0.5 % (0.0-1.5); O2Hb 92.2 % (94.0-97.0); SITE, ABG Left Radial; VT, ABG 450 mL
--- NOTE | 2017-07-29 11:30 | NUR ---
AFib 125 and up sustaning, Dr. Florence notified.
--- NOTE | 2017-07-29 11:45 | NUR ---
Pt repositioned, chest tube dressing reinforced. 40 ml of bright red pleural fl. noted in the tube.
[2017-07-29] MEDS: HYDROCODONE/APAP 5/325MG 1 EACH TABLET PO PRN (11:46)
[2017-07-29] MEDS ORDERED: AMIODARONE 150 MG in IV D5W 100 ML IV ONE (12:00)
[2017-07-29] MEDS ORDERED: AMIODARONE 900 MG in IV D5W 482 ML IV PRN (12:00)
--- NOTE | 2017-07-29 12:00 | NUR ---
pt aperas to be in pain HR 130th -150th, bp elevated, rr 30. Fawning. Medicated with norco via ogt.
--- NOTE | 2017-07-29 12:00 | NUR ---
Order for Amio gtt. obtained and entered. pharmacy notified.
[2017-07-29] MEDS: DIGOXIN 0.25 MG TABLET PO SCH (12:10)
--- NOTE | 2017-07-29 13:30 | NUR ---
Amio bolus initiated at 13:15, gtt initiated at 13:30
[2017-07-29] MEDS: SOD FERRIC GLUC 125 MG in IV NS 0.9% 100 ML IV SCH (15:07)
[2017-07-29] MEDS: PANTOPRAZOLE 40 MG VIAL IV SCH (18:00)
[2017-07-29] MEDS: HYDROMORPHONE INJ 2 MG/ML DISP.SYRIN IV PRN (18:04)
--- NOTE | 2017-07-29 18:48 | NUR ---
RT NOTE PATIENT IS ORALLY INTUBATED WITH 7.5 ETT SECURED AT 23 CM MID LIP LINE ON PB 840 VENT. ALARMS VERIFIED AND AUDIBLE. SUCTIONED AND LAVAGED MODERATE-LARGE AMOUNT OF THIN BLOODY / BLACK SECRETIONS. AMBU BAG AT [facility].
--- NOTE | 2017-07-29 19:39 | NUR ---
Receive pt on vent support pt stable no sob or distress noted on current settings, alarms are on and audible, vent is plugged into red outlet, ambu bag at bedside. Addendum: 07/29/17 at 1941 by GOLD GONZALEZ RT Amended: Links added.
--- NOTE | 2017-07-29 19:42 | NUR ---
HYDRAULIC CHAIR ASSEMBLER.INITIAL ASSESSMENT RECEIVED THE PT REST ON THE BED, ORALLY INTUBATED, PT IS LETHARGIC. RESPONDING PAIN FULL STIMULI. ETT 7.5,LIP 25,AC 10,TV 450,FIO2 40%, SAT 98%CHARGE OPERATOR SHOWING AFIB CONTROLLED. JEWEL SOFT WRIST RESTRAINT CHECKED AND RELEASED. NO INJURY OR REDNESS NOTED. LT SIDE CHEST TUBE INTACT. CONTINUOUS SUCTION RT UPPER ARM PICC LINE IVF NS 125ML/H,FC PATENT. OGT INTACT. TODAY ORDERED FIBER SOURCE . HOB ELEVATED, WILL CONTINUE TO MONITOR VITALS.
[2017-07-29] MEDS: FIBERSOURCE HN 1,000 ML BOTTLE GT PRN (21:03)
[2017-07-30] VITALS (49 sets, daily range): BP systolic 104–152; BP diastolic 39–93
[2017-07-30] MEDS: IV NS 0.9% 1,000 ML IV PRN ×3 (02:19→20:37)
--- NOTE | 2017-07-30 03:43 | NUR ---
SHANK STAPLER. AM CARE, ORAL CARE, BEE BATH GIVEN. LINEN CHANGED, JAMARI Murray SAME VENT SETTINGS TOLERATED WELL.SAT 98%. NO ACUTE DISTRESS NOTED. IV RT UPPER ARM PICC LINE. IVF NS 125ML/H. LT SIDE CHEST TUBE INTACTFC PATENT JEWEL WRIST RESTRV OGT FEEDING TOLTOTAL HOB ELEVATED TURN AND REPOSITION Q2H. WILL [id number] Addendum: 07/30/17 at 0601 by KEY MUSE RN SHANK STAPLER. AM CARE ORAL CARE, BED BATH GIVEN. LINEN CHANGED, REMAINING SAME VENT SETTING TOLERATED WELL. SAT 98%. NO ACUTE DISTRESS NOTED, AURICULAR DETOXIFICATION SPECIALIST SHOWING AFIB. OGT FEEDING FIBER SOURCE TOLERATED WELL. HOB ELEVATED. FC PATENT, LT SIDE CHEST TUBE SITE LEAKING, DRESSING DONE, WILL CONTINUE TO MONITOR, TURN AND REPOSITION Q2H, WILL CONTINUE TO MONITOR VITALS.IV RT UPPER ARM PICC LINE IVF NS 125 ML/H,AMIODARONE 0.5MG/MIN.
[2017-07-30] MEDS: HYDROMORPHONE INJ 2 MG/ML DISP.SYRIN IV PRN ×2 (04:50→23:13)
[2017-07-30 04:52] LABS: EOSINOPHILS % (AUTO) 0.1 % (0.0-6.0); HEMATOCRIT 26 % (33-45); HEMOGLOBIN 9.1 g/dL (11.5-14.8); LYMPHOCYTES # (AUTO) 0.1 /CMM (0.8-4.8); LYMPHOCYTES % (AUTO) 2.9 % (20.0-44.0); MEAN CORPUSCULAR HGB CONC 35 g/dl (31.0-36.0); MEAN CORPUSCULAR VOLUME 87 fL (82-100); MONOCYTES # (AUTO) 0.6 /CMM (0.1-1.30); MONOCYTES % (AUTO) 13.2 % (2.0-12.0); NEUTROPHILS # (AUTO) 4.1 /CMM (1.8-8.9); NEUTROPHILS % (AUTO) 83.8 % (43.0-81.0); PLATELET COUNT (AUTO) 156 /CMM (150-450); RDW COEFFICIENT OF VARIATION 15.4 (11.5-15.0); WHITE BLOOD COUNT (AUTO) 4.8 K/uL (4.3-11.0)
[2017-07-30 05:10] LABS: ALANINE AMINOTRANSFERASE 29 U/L (12-78); ALBUMIN 1.8 g/dL (3.4-5.0); ALKALINE PHOSPHATASE 42 U/L (46-116); ASPARTATE AMINOTRANSFERASE 31 U/L (15-37); BILIRUBIN,TOTAL 1.8 mg/dL (0.2-1.0); CALCIUM, SERUM 7.9 mg/dL (8.5-10.1); CARBON DIOXIDE 19 mmol/L (21-32); CHLORIDE 110 mmol/L (98-107); GLUCOSE 156 mg/dL (74-106); MAGNESIUM 1.9 mg/dL (1.8-2.4); PHOSPHORUS 2.6 mg/dL (2.5-4.9); POTASSIUM 3.9 mmol/L (3.5-5.1); SODIUM SERUM 138 mmol/L (136-145); TOTAL PROTEIN, SERUM 5.9 g/dL (6.4-8.2); UREA NITROGEN, BLOOD 58 mg/dL (7-18)
[2017-07-30 08:45] LABS: ABG BASE EXCESS -8.2 mmol/L; ABG OXYGEN SATURATION 96.2 % (92.0-98.5); ABG PCO2 32.2 mmHg (35.0-45.0); ABG PH 7.335 (7.350-7.450); ABG PO2 94.3 mmHg (75.0-100.0); AaDO2 153.9 mmHg; COHb 0.3 % (0.5-1.5); MetHb 0.5 % (0.0-1.5); O2Hb 95.4 % (94.0-97.0); PEEP,BG 0 cm H2O; SITE, ABG Left Radial; VT, ABG 450 mL
--- NOTE | 2017-07-30 09:00 | NUR ---
Gram neg rods in urine, albumin low. discused with dr Perez. will initiate albumin and Rocephin.
[2017-07-30] MEDS: ALBUMIN 25% 25 GM in PREMIX 1 EA IV SCH ×2 (10:56→17:37)
[2017-07-30] MEDS: CEFTRIAXONE 1 G in IV D5W 50 ML IV SCH (10:56)
--- NOTE | 2017-07-30 12:00 | NUR ---
Pt is more alert, opens eyes, follow simple commands. indicated that pain is improving.
[2017-07-30] MEDS: DIGOXIN 0.25 MG TABLET PO SCH (12:31)
[2017-07-30] MEDS: HYDROCODONE/APAP 5/325MG 1 EACH TABLET PO PRN ×2 (12:31→18:28)
[2017-07-30] MEDS: AMIODARONE HCL 200 MG TABLET NG SCH ×2 (12:32→21:07)
[2017-07-30] MEDS: PANTOPRAZOLE 40 MG VIAL IV SCH (17:37)
[2017-07-30] MEDS: SOD FERRIC GLUC 125 MG in IV NS 0.9% 100 ML IV SCH (17:38)
--- NOTE | 2017-07-30 18:00 | NUR ---
pr remains awake. admits to pain during repositioning. will medicate prior to bed bath. pt able to shake yes/no, squeeze hands bilat, moves her toe bilat.
--- NOTE | 2017-07-30 19:22 | NUR ---
PT RECEIVED ORALLY INTUBATED WITH A 7.5 ETT SECURED AT 25 CM AT THE LIP LINE. PT IS ON THE VENT WITH NOTED SETTINGS VENT ALARMS SET AND AUDIBLE. VENT IS PLUGGED INTO RED OUTLET. COMMUNICATION ENGINEER CUFF PRESSURE NOTED. SUCTIONED COPIOUS AMOUNT OF YELLOW/BLACK THICK SECRETIONS. NO RESPIRATORY DISTRESS NOTED AT THIS TIME, WILL CONTINUE TO MONITOR THE PT.
--- NOTE | 2017-07-30 19:35 | NUR ---
Received report from AM shift RN patient awake follows simple commands.Afib controlled 70's. Patient on mechanical vent support on AC mode well tolerated sating 98%.Suctioned small amount light brownish secretions.Left Chest Tube in place draining serosanguineous output.Dressing dry and intact.With OGT feeding infusing at 60 ml/hr and placement verified.Residual 10 ml.FC to gravity with scanty cloudy urine.IVF infusing via right upper arm PICC line.Site intact.Turned and repositioned. No acute distress noted.
--- NOTE | 2017-07-30 23:30 | NUR ---
Patient grimacing and crying PRN Dilaudid given @ 2313.Pain medication effective.No signs of pain thereafter.
[2017-07-31] VITALS (38 sets, daily range): BP systolic 90–148; BP diastolic 30–73
[2017-07-31] MEDS: FIBERSOURCE HN 1,000 ML BOTTLE GT PRN ×2 (00:21→17:39)
[2017-07-31] MEDS: ALBUMIN 25% 25 GM in PREMIX 1 EA IV SCH (02:01)
--- NOTE | 2017-07-31 04:00 | NUR ---
Patient bed bath rendered.Procedure well tolerated.Complete linens changed.Oral care. Chest tube dressing clean dry and intact with adequate serosanguineous output.VS Stable.Afib controlled.Tolerating feeding.Turned and repositioned.No acute distress noted. Low Urine output will endorse to AM shift RN for continuity of care.
[2017-07-31 04:17] LABS: BASOPHILS % (AUTO) 0.1 % (0.0-2.0); EOSINOPHILS % (AUTO) 0.2 % (0.0-6.0); HEMATOCRIT 21 % (33-45); HEMOGLOBIN 7.2 g/dL (11.5-14.8); LYMPHOCYTES # (AUTO) 0.2 /CMM (0.8-4.8); LYMPHOCYTES % (AUTO) 4.8 % (20.0-44.0); MEAN CORPUSCULAR HGB CONC 35 g/dl (31.0-36.0); MEAN CORPUSCULAR VOLUME 87 fL (82-100); MONOCYTES # (AUTO) 0.5 /CMM (0.1-1.30); MONOCYTES % (AUTO) 15.1 % (2.0-12.0); NEUTROPHILS # (AUTO) 2.6 /CMM (1.8-8.9); NEUTROPHILS % (AUTO) 79.8 % (43.0-81.0); PLATELET COUNT (AUTO) 110 /CMM (150-450); RDW COEFFICIENT OF VARIATION 15.3 (11.5-15.0); WHITE BLOOD COUNT (AUTO) 3.2 K/uL (4.3-11.0)
[2017-07-31] MEDS: IV NS 0.9% 1,000 ML IV PRN (04:41)
[2017-07-31 04:44] LABS: CALCIUM, SERUM 7.8 mg/dL (8.5-10.1); CARBON DIOXIDE 21 mmol/L (21-32); CHLORIDE 112 mmol/L (98-107); CREATININE 1.9 mg/dL (0.6-1.3); GLUCOSE 179 mg/dL (74-106); MAGNESIUM 2.2 mg/dL (1.8-2.4); PHOSPHORUS 1.9 mg/dL (2.5-4.9); POTASSIUM 4.3 mmol/L (3.5-5.1); SODIUM SERUM 140 mmol/L (136-145); UREA NITROGEN, BLOOD 61 mg/dL (7-18)
--- NOTE | 2017-07-31 07:05 | NUR ---
RN NOTES RECEIVED PT ON BED, ALERT, FOLLOWS SIMPLE COMMANDS , INTUBATED, TOLERATING CURRENT VENT SETTING WELL, ET SUCTIONING DONE, O2 SAT 98%, NO DISTRESS NOTED, LEFT CHEST TUBE IN PLACE TO CONTINUOUS WALL SUCTIONING WITH SEROSANGUINEOUS OUT PUT. DRESSING TO L CHEST TUBE SITE CDI, NGT WITH FIBERSOURCE RUNNING AT 60CC/HR , TOLERATING WELL , NO RESIDUAL NOTED, MARTINEZ DARNING TO GRAVITY WITH CLOUDY URINE, NS AT 125CC/HR RUNNING VIA R UPPER ARM PICC LINE , SITE CDI, SR UP x3, CALL LIGHT WITHIN EASY REACH , BED LOCKED AND IN LOWEST POSITION , CONTINUE TO MONITOR PT CLOSELY AND NOTIFY MD FOR ANY SIGNIFICANT CHANGES .
[2017-07-31] MEDS: AMIODARONE HCL 200 MG TABLET NG SCH ×3 (08:12→21:00)
--- NOTE | 2017-07-31 08:20 | NUR ---
RT PT RECEIVED ORALLY INTUBATD WITH A 7.5 ETT SECURED AT 23CM AT THE LIP LINE. PT IS ON THE VENT WITH NOTED SETTINGS. PT APPEARS TO BE AWAKE AND RESPONSIVE. VENT ALARMS ARE SET AND AUDIBLE WITH BVM BY BEDSIDE. HOT PLATE PLYWOOD PRESS FEEDER CUFF PRESSURE NOTED. VENT IS PLUGGED INTO RED OUTLET. NO RESPIRATORY DISTRESS NOTED AT THIS TIME, WILL CONTINUE TO MONITOR. Addendum: 07/31/17 at 1818 by CRICKET GAONA RT Amended: Links added. Addendum: 07/31/17 at 1821 by CRICKET GAONA RT ETT PLACEMENT CORRECTION (7.5 @ 25CM LIP LINE)
[2017-07-31] MEDS: CEFTRIAXONE 1 G in IV D5W 50 ML IV SCH (09:25)
[2017-07-31 09:38] LABS: ABG BASE EXCESS -7.7 mmol/L; ABG OXYGEN SATURATION 95.5 % (92.0-98.5); ABG PCO2 34.3 mmHg (35.0-45.0); ABG PH 7.325 (7.350-7.450); ABG PO2 89.2 mmHg (75.0-100.0); AaDO2 156.6 mmHg; COHb 0.3 % (0.5-1.5); MetHb 1.3 % (0.0-1.5); PEEP,BG 0 cm H2O; SITE, ABG Right Radial; VT, ABG 450 mL
[2017-07-31] MEDS: HYDROCODONE/APAP 5/325MG 1 EACH TABLET PO PRN (11:36)
[2017-07-31] MEDS: DIGOXIN 0.125 MG TABLET PO SCH (12:40)
--- NOTE | 2017-07-31 13:00 | NUR ---
RN NOTES MODERATE AMOUNT OF SEROSENGOUSE DRAINAGE NOTED ON RIGHT CHEST TUBE SITE . CHEST TUBE SITE DRESSING CHANGED . CONTINUE TO MONITOR .
[2017-07-31] MEDS ORDERED: K PHOS NEUTRAL 250 MG TABLET PO ONE (16:00)
[2017-07-31] MEDS: PANTOPRAZOLE 40 MG VIAL IV SCH (16:05)
[2017-07-31] MEDS: ACETAMINOPHEN 325 MG TABLET PO PRN (16:24)
[2017-07-31] MEDS: HYDROMORPHONE INJ 2 MG/ML DISP.SYRIN IV PRN (18:18)
--- NOTE | 2017-07-31 18:33 | NUR ---
RN NOTES ET SUCTIONING DONE, HR IN HIGH 60'S, A.FIB, MARTINEZ DRAINING TO GRAVITY, L CHEST TUBE SITE CDI DRANING SEROSANGUINEOUS DRAINAGE , SR UP X3, CALL LIGHTS WITHIN EASY REACH, WILL ENDOSE TO PM NURSE FOR DERRICK
--- NOTE | 2017-07-31 19:18 | NUR ---
PT RECEIVED ORALLY INTUBATED WITH A 7.5 ETT SECURED AT 25 CM AT THE LIP LINE. PT IS ON THE VENT WITH NOTED SETTINGS VENT ALARMS SET AND AUDIBLE. VENT IS PLUGGED INTO RED OUTLET. ORGANIC GARDENING TEACHER CUFF PRESSURE NOTED. SUCTIONED LARGE AMOUNT OF BLACK THICK SECRETIONS WITH BLOOD TINGED. BILATERAL BS NOTED. NO RESPIRATORY DISTRESS NOTED AT THIS TIME, WILL CONTINUE TO MONITOR THE PT.
--- NOTE | 2017-07-31 20:00 | NUR ---
Received patient resting open yes to verbal stimuli.VS stable.Afib 40's-50's.Intubated to mechanical vent on AC mode.Settings well tolerated.Moderate secretions suctioned PRN with long to blood tinge secretion.Left chest tube intact draining serosanguineous output. No air leaks noted.OGT feeding on with 20 ml residual.Aspiration precaution implemented. FC with cloudy yellow urine.Turned and repositioned.No distress noted.
[2017-07-31] MEDS: AMPICILLIN 1 GM in IV NS 0.9% 50 ML IV SCH (21:00)
[2017-07-31] MEDS: IV NS 0.9% 250 ML BAG IV ONE ×2 (21:06→21:16)
[2017-07-31] MEDS ORDERED: IV NS 0.9% 250 ML IV ONE (22:00)
[2017-08-01] VITALS (41 sets, daily range): BP systolic 96–167; BP diastolic 40–72
[2017-08-01] MEDS: HYDROMORPHONE INJ 2 MG/ML DISP.SYRIN IV PRN ×2 (00:01→15:39)
[2017-08-01 04:52] LABS: BASOPHILS % (AUTO) 0.1 % (0.0-2.0); EOSINOPHILS % (AUTO) 1.2 % (0.0-6.0); HEMATOCRIT 27 % (33-45); HEMOGLOBIN 9.1 g/dL (11.5-14.8); LYMPHOCYTES # (AUTO) 0.3 /CMM (0.8-4.8); LYMPHOCYTES % (AUTO) 4.7 % (20.0-44.0); MEAN CORPUSCULAR HGB CONC 34 g/dl (31.0-36.0); MEAN CORPUSCULAR VOLUME 88 fL (82-100); MONOCYTES # (AUTO) 0.9 /CMM (0.1-1.30); MONOCYTES % (AUTO) 13.1 % (2.0-12.0); NEUTROPHILS # (AUTO) 5.7 /CMM (1.8-8.9); NEUTROPHILS % (AUTO) 80.9 % (43.0-81.0); PLATELET COUNT (AUTO) 145 /CMM (150-450); RDW COEFFICIENT OF VARIATION 16.4 (11.5-15.0); RED BLOOD CELL COUNT(AUTO) 3.02 MIL/uL (4.0-5.2)
[2017-08-01 05:09] LABS: ALANINE AMINOTRANSFERASE 25 U/L (12-78); ALBUMIN 2.3 g/dL (3.4-5.0); ALKALINE PHOSPHATASE 60 U/L (46-116); ASPARTATE AMINOTRANSFERASE 29 U/L (15-37); BILIRUBIN,TOTAL 0.7 mg/dL (0.2-1.0); CALCIUM, SERUM 8.2 mg/dL (8.5-10.1); CARBON DIOXIDE 22 mmol/L (21-32); CHLORIDE 112 mmol/L (98-107); CREATININE 1.9 mg/dL (0.6-1.3); GLUCOSE 143 mg/dL (74-106); MAGNESIUM 2.1 mg/dL (1.8-2.4); PHOSPHORUS 1.7 mg/dL (2.5-4.9); POTASSIUM 4.3 mmol/L (3.5-5.1); SODIUM SERUM 142 mmol/L (136-145); TOTAL PROTEIN, SERUM 5.5 g/dL (6.4-8.2); UREA NITROGEN, BLOOD 67 mg/dL (7-18)
--- NOTE | 2017-08-01 06:30 | NUR ---
Patient more awake.VS stable.Afib 70's-80's at times charles'd down to 48-50's.No distress noted. Chest tube intact with moderate serosanguineous output.AM care done.Turned and repositioned.
[2017-08-01] MEDS: AMIODARONE HCL 200 MG TABLET NG SCH ×3 (08:05→21:57)
[2017-08-01] MEDS: AMPICILLIN 1 GM in IV NS 0.9% 50 ML IV SCH ×2 (08:06→21:58)
--- NOTE | 2017-08-01 08:43 | NUR ---
RT NOTE PT RECEIVED MECHANICALLY VENTILATED VIA 7.5 ETT 25 CM AT LIP. SETTINGS PRESCRIBED. ALARMS SET PER PROTOCOL AND AUDIBLE. VENT PLUGGED IN TO RED OUTLET. AMBU BAG AT BED SIDE. CUFF INFLATED. MILL TENDER WASHING PERFORMED. NO DISTRESS NOTED AT MOMENT. WILL CONTINUE TO MONITOR.
--- NOTE | 2017-08-01 09:15 | NUR ---
ICU/RN: Dr Emmanuel at bedside; update on pt status. Pt easily aroused by name and touch, follows simple commands. Orders for weaning noted and carried out.
[2017-08-01] MEDS: FIBERSOURCE HN 1,000 ML BOTTLE GT PRN (10:08)
--- NOTE | 2017-08-01 10:38 | NUR ---
RT NOTE PT PLACED ON SIMV PER MD BYRNE ORDER. SETTINGS PRESCRIBED SIMV RR 4 +5 PS 12 40%. RN NOTIFIED. SETTINGS PRESCRIBED AND AUDIBLE. VENT PLUGGED IN TO RED OUTLET. AMBU BAG AT BED SIDE. NO DISTRESS NOTED AT MOMENT. WILL CONTINUE TO MONITOR. Addendum: 08/01/17 at 1040 by TRINI GILBERT RT Amended: Links added.
[2017-08-01] MEDS ORDERED: FUROSEMIDE 40 MG/4 ML VIAL IV ONE (11:00)
[2017-08-01 11:42] LABS: ABG BASE EXCESS -5.3 mmol/L; ABG OXYGEN SATURATION 96.7 % (92.0-98.5); ABG PCO2 31.8 mmHg (35.0-45.0); ABG PO2 93.6 mmHg (75.0-100.0); COHb 0.3 % (0.5-1.5); MetHb 0.6 % (0.0-1.5); O2Hb 95.8 % (94.0-97.0); PEEP,BG 5 cm H2O; SITE, ABG Right Radial; VENT MODE, BG SIMV 4 +5 PS 12 40%
--- NOTE | 2017-08-01 12:25 | NUR ---
RT NOTE PT PLACED BACK ON AC MODE ON PREVIOUS SETTINGS PER MD PELEG ORDER DUE TO PT INCREASE WOB. NO DISTRESS NOTED AT MOMENT. ALARMS SET PER PROTOCOL AND AUDIBLE. VENT PLUGGED IN TO RED OUTLET. AMBU BAG AT BED SIDE. NO DISTRESS NOTED AT THE MOMENT. WILL CONTINUE TO MONITOR. Addendum: 08/01/17 at 1228 by TRINI GILBERT RT Amended: Links added.
--- NOTE | 2017-08-01 12:30 | NUR ---
ICU/RN: Pt unable to tolerate SIMV weaning, tachypneic, tachycardic and restless. Dr Emmanuel at bedside, abg's reviewed with orders to place back on AC mode.
[2017-08-01] MEDS: DIGOXIN 0.125 MG TABLET PO SCH (13:09)
[2017-08-01] MEDS: HYDROCODONE/APAP 5/325MG 1 EACH TABLET PO PRN ×2 (13:14→23:31)
[2017-08-01] MEDS ORDERED: NEUTRA PHOS 1 POWD.PACKET NG ONE (13:30)
--- NOTE | 2017-08-01 15:45 | NUR ---
ICU/RN: Bed bath, wound care rendered. Pt noted to be crying, increased VSS, restlessness. Administered Dilaudid PRN as ordered for comfort. Will reassess accordingly.
--- NOTE | 2017-08-01 16:00 | NUR ---
ICU/RN: Renetta Forbes NP at bedside for f/u. Updated on pt status, failed weaning, labs, output.
[2017-08-01] MEDS: PANTOPRAZOLE 40 MG VIAL IV SCH (16:13)
--- NOTE | 2017-08-01 19:30 | NUR ---
TALENT DEVELOPMENT COORDINATOR: RECEIVED INTUBATED PT TO [facility]. VENT WT SETTINGS ORDERED. EYES OPEN, ABLE TO TRACK BUT UNABLE TO FOLLOW SIMPLE COMMANDS AT THIS TIME. NO ACUTE DISTRESS, NO EVIDENCE OF DISCOMFORT. CONTROLLED A. FIB ON REHABILITATION LIAISON. OGT IN PLACE RUNNING FIBERSOURCE AT 60ML/HR WT 10CC RESIDUAL. LT. UPPER CHEST TUBE TO WATER SEAL SUCTION WT MODERATE AMT. OF SANGUINOUS DRAINAGE AND NO AIR LEAK NOTED. DRESSING INTACT WT MINIMAL LEAK, DRESSING REINFORCED. ЕКАТЕРИНА TKO WT NO S/S OF COMPLICATIONS. F/C PATENT AND INTACT DRAINING CLOUDY YELLOW URINE TO GRAVITY. HOB AT 35 DEGREES. ASPIRATION PRECAUTION NOTED. WILL CONTINUE TO MONITOR.
[2017-08-02] VITALS (37 sets, daily range): BP systolic 90–164; BP diastolic 34–68
[2017-08-02] MEDS: HYDROMORPHONE INJ 2 MG/ML DISP.SYRIN IV PRN ×2 (04:38→14:23)
[2017-08-02 04:56] LABS: EOSINOPHILS % (AUTO) 0.4 % (0.0-6.0); HEMATOCRIT 26 % (33-45); HEMOGLOBIN 8.8 g/dL (11.5-14.8); LYMPHOCYTES # (AUTO) 0.4 /CMM (0.8-4.8); LYMPHOCYTES % (AUTO) 3.8 % (20.0-44.0); MEAN CORPUSCULAR HGB CONC 34 g/dl (31.0-36.0); MEAN CORPUSCULAR VOLUME 87 fL (82-100); MONOCYTES # (AUTO) 1.2 /CMM (0.1-1.30); NEUTROPHILS # (AUTO) 8.4 /CMM (1.8-8.9); NEUTROPHILS % (AUTO) 83.8 % (43.0-81.0); PLATELET COUNT (AUTO) 165 /CMM (150-450); RDW COEFFICIENT OF VARIATION 15.9 (11.5-15.0); RED BLOOD CELL COUNT(AUTO) 2.96 MIL/uL (4.0-5.2); WHITE BLOOD COUNT (AUTO) 10.1 K/uL (4.3-11.0)
[2017-08-02 05:10] LABS: CALCIUM, SERUM 7.9 mg/dL (8.5-10.1); CARBON DIOXIDE 23 mmol/L (21-32); CHLORIDE 112 mmol/L (98-107); CREATININE 1.8 mg/dL (0.6-1.3); GLUCOSE 149 mg/dL (74-106); MAGNESIUM 1.9 mg/dL (1.8-2.4); PHOSPHORUS 1.6 mg/dL (2.5-4.9); POTASSIUM 4.4 mmol/L (3.5-5.1); SODIUM SERUM 142 mmol/L (136-145); UREA NITROGEN, BLOOD 74 mg/dL (7-18)
--- NOTE | 2017-08-02 05:30 | NUR ---
CLOSING SPECIALIST: FOLLOWS COMMANDS AT TIMES, PAIN MED GIVEN NEEDED D/T FACIAL GRIMACE AND RESTLESSNESS SHORTLY AFTER GIVING BED BATH WT GOOD EFFECT. NO SIGNIFICANT DERRICK. VS WITHIN HER BASELINE.
[2017-08-02] MEDS: FIBERSOURCE HN 1,000 ML BOTTLE GT PRN (06:26)
--- NOTE | 2017-08-02 07:23 | NUR ---
Intubated pt received on mechanical vent. ETT secured at 25cm @ the lip. Vent is plugged into a red outlet, alarms are set and audible, and BVM is at bedside. Addendum: 08/02/17 at 0725 by ANDREA ALVAREZ RT Amended: Links added.
[2017-08-02] MEDS: AMPICILLIN 1 GM in IV NS 0.9% 50 ML IV SCH ×2 (08:10→20:41)
[2017-08-02] MEDS: AMIODARONE HCL 200 MG TABLET NG SCH ×3 (08:10→20:43)
[2017-08-02] MEDS: IV NS 0.9% 250 ML IV PRN (09:00)
[2017-08-02 10:07] LABS: ABG BASE EXCESS -3.8 mmol/L; ABG OXYGEN SATURATION 96.3 % (92.0-98.5); ABG PCO2 34.9 mmHg (35.0-45.0); ABG PO2 87.1 mmHg (75.0-100.0); COHb 0.3 % (0.5-1.5); MetHb 0.6 % (0.0-1.5); O2Hb 95.4 % (94.0-97.0); SITE, ABG Left Radial; VENT MODE, BG AC 10 450 40% +0
[2017-08-02] MEDS ORDERED: NEUTRA PHOS 1 POWD.PACKET NG ONE (11:00)
[2017-08-02] MEDS: HYDROCODONE/APAP 5/325MG 1 EACH TABLET PO PRN (11:58)
[2017-08-02] MEDS: DIGOXIN 0.125 MG TABLET PO SCH (12:00)
--- NOTE | 2017-08-02 12:00 | NUR ---
ICU/RN - Notes Pt noted with facial grimacing, elevated BP. Administered [place] 5/325 1 tab as ordered to ensure comfort as pt is intubated.
--- NOTE | 2017-08-02 14:25 | NUR ---
ICU/RN - Notes Pt awake with eyes open and facial grimacing. Nods head yes when asked if in pain. Administered dilaudid 1mg IVP as ordered for PRN pain, prior to bed bath. Will reassess pain accordingly.
[2017-08-02] MEDS: PANTOPRAZOLE 40 MG VIAL IV SCH (16:09)
--- NOTE | 2017-08-02 16:47 | NUR ---
ICU/RN - Notes Sputum specimen collected and sent to lab.
--- NOTE | 2017-08-02 19:30 | NUR ---
RISK CONTROL PRODUCT LIABILITY DIRECTOR: RECEIVED INTUBATED PT WT VENT SETTINGS ORDERED. EYES OPEN SPONTANEOUSLY, TRACKS AND FOLLOWS SIMPLE COMMANDS AT TIMES. NO ACUTE DISTRESS, NO EVIDENCE OF DISCOMFORT. CONTROLLED A. FIB ON MONITOR WT HR IN 40s-50s WHEN ASLEEP AND 70s TO 80s WHEN AWAKE. OGT RUNNING FIBERSOURCE AT 60ML/HR WT 10 CC RESIDUAL. F/C PATENT AND INTACT DRAINING CLOUDY YELLOW URINE TO GRAVITY. LT. UPPER CHEST TUBE IN PLACE TO WATER SEAL SUCTION WT SEROSANGUINEOUS DRAINAGE. ЕКАТЕРИНА PICC TKO WT NO S/S OF COMPLICATIONS. HOB AT 35 DEGREES. ASPIRATION PRECAUTION NOTED. WILL CONTINUE TO MONITOR.
--- NOTE | 2017-08-02 20:52 | NUR ---
PT RECEIVED INTUBATED WITH 7.5 ETT SECURED AT 25CM AT THE LIP. PT IS AWAKE AND TOLERATING VENT SETTINGS. VENT ALARMS SET AND AUDIBLE. AMBU BAG AT BEDSIDE. VENT PLUGGED INTO RED OUTLET. WILL CONTINUE TO MONITOR. Addendum: 08/02/17 at 2053 by ENA HUA RT Amended: Links added.
--- NOTE | 2017-08-02 22:20 | NUR ---
TICKET ATTENDANT: SEEN AND EXAMINED BY [facility]Y [facility] GI MANAGER [employer]OR[employer] WT ORDER FOR STOOL OCCULT BLOOD. NOTED AND CARRIED OUT.
[2017-08-03] VITALS (36 sets, daily range): BP systolic 97–163; BP diastolic 36–98
[2017-08-03] MEDS: HYDROMORPHONE INJ 2 MG/ML DISP.SYRIN IV PRN ×2 (00:15→21:22)
[2017-08-03] MEDS: FIBERSOURCE HN 1,000 ML BOTTLE GT PRN (01:04)
--- NOTE | 2017-08-03 02:45 | NUR ---
TRAVELING ELECTRICIAN: PT HR GOES DOWN IN THE 40s WHEN IN DEEP SLEEP AFTER GIVEN DILAUDID AND BED BATH. EASILY AROUSED WITH PAIN STIMULI AND HR GOES UP AGAIN IN THE 50s AND 60s.
[2017-08-03 05:54] LABS: BASOPHILS % (AUTO) 0.1 % (0.0-2.0); EOSINOPHILS % (AUTO) 0.5 % (0.0-6.0); HEMATOCRIT 26 % (33-45); HEMOGLOBIN 8.9 g/dL (11.5-14.8); LYMPHOCYTES # (AUTO) 0.3 /CMM (0.8-4.8); LYMPHOCYTES % (AUTO) 2.6 % (20.0-44.0); MEAN CORPUSCULAR HGB CONC 35 g/dl (31.0-36.0); MEAN CORPUSCULAR VOLUME 88 fL (82-100); MONOCYTES # (AUTO) 1.1 /CMM (0.1-1.30); MONOCYTES % (AUTO) 10.2 % (2.0-12.0); NEUTROPHILS # (AUTO) 9.2 /CMM (1.8-8.9); NEUTROPHILS % (AUTO) 86.6 % (43.0-81.0); PLATELET COUNT (AUTO) 151 /CMM (150-450); RDW COEFFICIENT OF VARIATION 15.2 (11.5-15.0); RED BLOOD CELL COUNT(AUTO) 2.95 MIL/uL (4.0-5.2); WHITE BLOOD COUNT (AUTO) 10.7 K/uL (4.3-11.0)
[2017-08-03 06:10] LABS: CALCIUM, SERUM 7.5 mg/dL (8.5-10.1); CARBON DIOXIDE 24 mmol/L (21-32); CHLORIDE 111 mmol/L (98-107); CREATININE 1.7 mg/dL (0.6-1.3); GLUCOSE 165 mg/dL (74-106); MAGNESIUM 2.1 mg/dL (1.8-2.4); PHOSPHORUS 2.4 mg/dL (2.5-4.9); POTASSIUM 4.8 mmol/L (3.5-5.1); SODIUM SERUM 143 mmol/L (136-145); UREA NITROGEN, BLOOD 79 mg/dL (7-18)
--- NOTE | 2017-08-03 06:50 | NUR ---
DOG BREEDER: NO SIGNIFICANT DERRICK DURING THE SHIFT. VS WITHIN PT's BASELINE.
[2017-08-03 08:17] LABS: ABG BASE EXCESS -2.7 mmol/L; ABG OXYGEN SATURATION 98.2 % (92.0-98.5); ABG PCO2 33.4 mmHg (35.0-45.0); ABG PH 7.421 (7.350-7.450); AaDO2 112.8 mmHg; COHb 0.2 % (0.5-1.5); MetHb 0.5 % (0.0-1.5); O2Hb 97.5 % (94.0-97.0); SITE, ABG Right Radial; VENT MODE, BG A/C; VT, ABG 450 mL
[2017-08-03] MEDS: AMIODARONE HCL 200 MG TABLET NG SCH ×3 (08:24→21:01)
[2017-08-03] MEDS: AMPICILLIN 1 GM in IV NS 0.9% 50 ML IV SCH ×2 (08:24→21:00)
--- NOTE | 2017-08-03 11:15 | NUR ---
RECEIVED A CALL FROM KYLE DAVIS FOR DR. YU REGARDING EGD TODAY AT 2 PM. AWARE THAT PATIENT RECEIVING TUBE FEEDINGS AT THIS TIME. OKAY TO PUT PATIENT ON NPO NOW. WILL CALL PATIENT SON TO EXPLAIN PROCEDURE.
--- NOTE | 2017-08-03 11:25 | NUR ---
SPOKE TO PATIENT NAOMY GOODMAN- CONSENTED FOR EGD TODAY.
[2017-08-03] MEDS ORDERED: NEUTRA PHOS 1 POWD.PACKET NG ONE (12:00)
[2017-08-03] MEDS: DIGOXIN 0.125 MG TABLET PO SCH (12:12)
--- NOTE | 2017-08-03 12:30 | NUR ---
PATIENT SEEN BY DR. CAROLYNE DIOP-LABS NOTED. PHOS REPLACEMENT. AFEBRILE. VSS.
[2017-08-03] MEDS: IV NS 0.9% 250 ML IV PRN (12:34)
[2017-08-03 13:04] LABS: OCCULT BLOOD STOOL NEGATIVE (NEGATIVE)
--- NOTE | 2017-08-03 16:00 | NUR ---
SPOKE TO LICENSED CLINICAL SOCIAL WORKER-EGD CANCELLED. RESCHEDULED IN AM. PATIENT TUBE FEEDINGS RESUMED .
[2017-08-03] MEDS: PANTOPRAZOLE 40 MG VIAL IV SCH (16:33)
--- NOTE | 2017-08-03 17:00 | NUR ---
FULL PM CARE. LEFT CHEST TUBE DRESSING CHANGED. NO SIGNIFICANT CHANGE IN CONDITION NOTED. PATIENT NAOMY GOODMAN UPDATED WITH PATIENT STATUS.
--- NOTE | 2017-08-03 22:30 | NUR ---
PT RECEIVED INTUBATED ON VENT. PT IS AWAKE NO RESP DISTRESS NOTED. PT TOLERATING VENT SETTINGS. SX'D FOR MOD AMT OF THICK YELLOW SECRETIONS. VENT ALARMS SET AND AUDIBLE. VENT PLUGGED INTO RED OUTLET. 7.5 ETT SECURED AT 25CM AT THE LIP. WILL CONTINUE TO MONITOR. Addendum: 08/03/17 at 2232 by ENA HUA RT Amended: Links added.
[2017-08-04] VITALS (36 sets, daily range): BP systolic 86–143; BP diastolic 34–75
--- NOTE | 2017-08-04 | NUR ---
VULCANIZING MACHINE OPERATOR TURNED OFF TUBE FEEDING FOR EGD IN AM.
[2017-08-04 05:09] LABS: CALCIUM, SERUM 7.7 mg/dL (8.5-10.1); CARBON DIOXIDE 24 mmol/L (21-32); CHLORIDE 113 mmol/L (98-107); CREATININE 1.6 mg/dL (0.6-1.3); GLUCOSE 129 mg/dL (74-106); MAGNESIUM 2.2 mg/dL (1.8-2.4); PHOSPHORUS 3.5 mg/dL (2.5-4.9); POTASSIUM 5.1 mmol/L (3.5-5.1); SODIUM SERUM 146 mmol/L (136-145); UREA NITROGEN, BLOOD 75 mg/dL (7-18)
[2017-08-04 05:11] LABS: BASOPHILS % (AUTO) 0.4 % (0.0-2.0); EOSINOPHILS % (AUTO) 0.4 % (0.0-6.0); HEMATOCRIT 26 % (33-45); HEMOGLOBIN 9.2 g/dL (11.5-14.8); LYMPHOCYTES # (AUTO) 0.3 /CMM (0.8-4.8); LYMPHOCYTES % (AUTO) 2.8 % (20.0-44.0); MEAN CORPUSCULAR HGB CONC 35 g/dl (31.0-36.0); MEAN CORPUSCULAR VOLUME 87 fL (82-100); MONOCYTES # (AUTO) 0.6 /CMM (0.1-1.30); MONOCYTES % (AUTO) 5.1 % (2.0-12.0); NEUTROPHILS # (AUTO) 10.1 /CMM (1.8-8.9); NEUTROPHILS % (AUTO) 91.3 % (43.0-81.0); PLATELET COUNT (AUTO) 81 /CMM (150-450); RDW COEFFICIENT OF VARIATION 14.9 (11.5-15.0); RED BLOOD CELL COUNT(AUTO) 2.98 MIL/uL (4.0-5.2)
[2017-08-04] MEDS: AMPICILLIN 1 GM in IV NS 0.9% 50 ML IV SCH ×2 (08:26→20:36)
[2017-08-04 08:36] LABS: ABG BASE EXCESS 2.3 mmol/L; ABG OXYGEN SATURATION 96.1 % (92.0-98.5); ABG PCO2 35.7 mmHg (35.0-45.0); ABG PH 7.478 (7.350-7.450); ABG PO2 89.5 mmHg (75.0-100.0); AaDO2 154.6 mmHg; COHb 0.9 % (0.5-1.5); MetHb 0.5 % (0.0-1.5); O2Hb 94.8 % (94.0-97.0); PEEP,BG 0 cm H2O; SITE, ABG Left Brachial; VT, ABG 450 mL
--- NOTE | 2017-08-04 09:30 | NUR ---
CONTAINER WASHER NOTE 0720: Received patient awake, lethargic. Able to answer yes/no questions. With ETT to vent, tolerated settings well. No respiratory distress noted at this time. With OGT clamped, remained NPO for EGD prep. No c/o discomfort at this time. With ЕКАТЕРИНА PICC intact. With Lizama cath noted with yellow urine with sediments. Afib 90's on the monitor. Left upper chest tube, noted with minimal serosanguineous drainage. No active bleeding noted at this time. 0830: Spoke with Galdino, son, via phone and given update. Aware for the EGD to be done today. 0900: Done with EGD, Dr. Chandler noted gastritis and esophagitis. Mony ARELLANO, may resume tube feeding. 0910: S/E by Dr. Emmanuel, no new order at this time. Made aware for CT 75mL drainage for 24hours. 0930: No any significant changes noted at this time. Kept clean, warm and dry. Needs attended. VSS.
[2017-08-04] MEDS: AMIODARONE HCL 200 MG TABLET NG SCH ×3 (09:38→20:36)
[2017-08-04] MEDS: FIBERSOURCE HN 1,000 ML BOTTLE GT PRN (11:22)
[2017-08-04] MEDS: DIGOXIN 0.125 MG TABLET PO SCH (13:00)
[2017-08-04] MEDS: IV NS 0.9% 250 ML IV PRN (13:34)
[2017-08-04] MEDS ORDERED: FUROSEMIDE 40 MG/4 ML VIAL IV ONE (14:30)
--- NOTE | 2017-08-04 15:12 | NUR ---
HEALTH AND PHYSICAL EDUCATION TEACHER NOTE Lasix 40mg IVP given per Dr. Florence. Cleaned patient, noted with soft formed brown stool. GT feeding ongoing, tolerated well.
[2017-08-04] MEDS: PANTOPRAZOLE 40 MG VIAL IV SCH (16:18)
[2017-08-04] MEDS: HYDROCODONE/APAP 5/325MG 1 EACH TABLET PO PRN (17:04)
--- NOTE | 2017-08-04 17:35 | NUR ---
NO VENT CHANGES MADE. Addendum: 08/04/17 at 1735 by CINTIA CASTELLON RT Amended: Links added.
--- NOTE | 2017-08-04 19:30 | NUR ---
CAR REPOSSESSOR INITIAL NOTES: RECEIVED PATIENT ORALLY INTUBATED, WITH VENT SETTINGS ORDERED, PATIENT. ABLE TO OPEN EYES SPONTANEOUSLY, ALERT, ABLE TO FOLLOW SIMPLE COMMANDS, AIDS IN REPOSITIONING. PT ON TELEMETRY MONITORING, REVEALING AFIB, CONTROLLED RATE IN THE 60s. OGT PATENT AND INTACT, ONGOING TUBE FEEDING AT PRESCRIBED RATE. LEFT CHEST TUBE PATENT AND INTACT, TUBING CHECKED FOR LEAKS/KINKS, ON LOW CONTINUOS SUCTION, MINIMAL SEROSANGUINOUS OUTPUT NOTED. MARTINEZ CATHETER PATENT AND INTACT, DRAINING CLEAR YELLOW URINE TO GRAVITY. CALL LIGHT LEFT WITHIN EASY REACH, BED IN LOWEST AND LOCKED POSITION, HOB ELEVATED FOR ASPIRATION PRECAUTIONS. WILL CONTINUE TO CLOSELY MONITOR
[2017-08-05] VITALS (29 sets, daily range): BP systolic 110–155; BP diastolic 35–78
[2017-08-05] MEDS: HYDROMORPHONE INJ 2 MG/ML DISP.SYRIN IV PRN ×2 (01:09→16:33)
--- NOTE | 2017-08-05 04:00 | NUR ---
WEBBING WEAVER NOTES LEFT CHEST TUBE DRESSING CHANGED, PATIENT TOLERATED PROCEDURE WELL, WILL CONTINUE TO CLOSELY MONITOR
[2017-08-05 04:48] LABS: EOSINOPHILS % (AUTO) 0.3 % (0.0-6.0); HEMATOCRIT 25 % (33-45); HEMOGLOBIN 8.4 g/dL (11.5-14.8); LYMPHOCYTES # (AUTO) 0.3 /CMM (0.8-4.8); LYMPHOCYTES % (AUTO) 2.5 % (20.0-44.0); MEAN CORPUSCULAR HGB CONC 34 g/dl (31.0-36.0); MEAN CORPUSCULAR VOLUME 89 fL (82-100); MONOCYTES # (AUTO) 0.6 /CMM (0.1-1.30); MONOCYTES % (AUTO) 5.4 % (2.0-12.0); NEUTROPHILS # (AUTO) 10.5 /CMM (1.8-8.9); NEUTROPHILS % (AUTO) 91.8 % (43.0-81.0); PLATELET COUNT (AUTO) 162 /CMM (150-450); RDW COEFFICIENT OF VARIATION 16.8 (11.5-15.0); RED BLOOD CELL COUNT(AUTO) 2.83 MIL/uL (4.0-5.2); WHITE BLOOD COUNT (AUTO) 11.4 K/uL (4.3-11.0)
[2017-08-05 05:10] LABS: CALCIUM, SERUM 7.5 mg/dL (8.5-10.1); CARBON DIOXIDE 28 mmol/L (21-32); CHLORIDE 113 mmol/L (98-107); CREATININE 1.5 mg/dL (0.6-1.3); GLUCOSE 174 mg/dL (74-106); MAGNESIUM 2.1 mg/dL (1.8-2.4); PHOSPHORUS 3.5 mg/dL (2.5-4.9); POTASSIUM 4.2 mmol/L (3.5-5.1); SODIUM SERUM 149 mmol/L (136-145); UREA NITROGEN, BLOOD 73 mg/dL (7-18)
--- NOTE | 2017-08-05 05:46 | NUR ---
RT NOTES PT RECEIVED INTUBATED WITH 7.5 ETT SECURED AT 25CM AT THE LIP. PT IS AWAKE AND TOLERATING VENT SETTINGS. VENT ALARMS SET AND AUDIBLE. AMBU BAG AT BEDSIDE. VENT PLUGGED INTO RED OUTLET. WILL CONTINUE TO MONITOR. Addendum: 08/05/17 at 0547 by KYRA ROCA RT Amended: Links added.
[2017-08-05] MEDS: FIBERSOURCE HN 1,000 ML BOTTLE GT PRN (06:44)
--- NOTE | 2017-08-05 07:00 | NUR ---
PIG MACHINE OPERATOR HELPER CLOSING NOTES PATIENT RESTING IN BED, NO ACUTE DISTRESS NOTED. NO ACUTE CHANGES OR EVENTS THROUGHOUT SHIFT. WILL ENDORSE THE PATIENT TO THE INCOMING NURSE FOR CONTINUITY OF CARE
--- NOTE | 2017-08-05 07:50 | NUR ---
PT AWAKE, ALERT. INDICATES SHE HAS NO PAIN , NO SOB. SIMV TRIAL INITIATED. SMALL AMOUNT OF LIGHT PINK DRAINAGE IN LEFT CHEST TUBE NOTED. AFIB 48-61 DR LOCK NOTIFIED.
--- NOTE | 2017-08-05 07:54 | NUR ---
Intubated pt received on AC mode. Pt placed on SIMV mode per MD order. 7.5 ETT secured at 25cm at the lip. Vent is plugged into a red outlet, alarms are set and audible, and BVM is at bedside. Addendum: 08/05/17 at 0755 by ANDREA ALVAREZ RT Amended: Links added.
[2017-08-05] MEDS: AMPICILLIN 1 GM in IV NS 0.9% 50 ML IV SCH ×2 (08:47→20:45)
[2017-08-05] MEDS: AMIODARONE HCL 200 MG TABLET NG SCH ×3 (08:47→20:45)
[2017-08-05 09:24] LABS: ABG BASE EXCESS 1.8 mmol/L; ABG OXYGEN SATURATION 97.1 % (92.0-98.5); ABG PCO2 35.5 mmHg (35.0-45.0); ABG PH 7.471 (7.350-7.450); ABG PO2 94.8 mmHg (75.0-100.0); AaDO2 149.6 mmHg; COHb 0.4 % (0.5-1.5); MetHb 0.6 % (0.0-1.5); O2Hb 96.1 % (94.0-97.0); SITE, ABG Right Radial; VENT MODE, BG SIMV 4 450 PS 12 40% +5
[2017-08-05] MEDS ORDERED: JEVITY 1.2 CAL 1,000 ML BOTTLE GT PRN (10:00)
[2017-08-05] MEDS ORDERED: FUROSEMIDE 20 MG/2 ML VIAL IV ONE ×2 (10:30→14:30)
--- NOTE | 2017-08-05 10:40 | NUR ---
Pt extubated and placed on NC per MD order. Addendum: 08/05/17 at 1044 by ANDREA ALVAREZ RT Amended: Links added.
[2017-08-05 13:23] LABS: ABG BASE EXCESS 1.7 mmol/L; ABG OXYGEN SATURATION 94.7 % (92.0-98.5); ABG PCO2 34.5 mmHg (35.0-45.0); ABG PH 7.477 (7.350-7.450); ABG PO2 73.5 mmHg (75.0-100.0); AaDO2 114.3 mmHg; COHb 0.3 % (0.5-1.5); MetHb 0.5 % (0.0-1.5); O2Hb 93.9 % (94.0-97.0); SITE, ABG Right Radial; VENT MODE, BG Nasal Cannula
[2017-08-05] MEDS: DIGOXIN 0.125 MG TABLET PO SCH (14:29)
--- NOTE | 2017-08-05 16:00 | NUR ---
pt extubated at 1040 am. remains on 3l nc, vss. denies sob. non prod. cough. will imitate Mucomyst.
[2017-08-05] MEDS: PANTOPRAZOLE 40 MG VIAL IV SCH (16:33)
--- NOTE | 2017-08-05 18:00 | NUR ---
Pt assisted with bed/bath, oral care skin care. one large bm. new chest tube dressing applied.
--- NOTE | 2017-08-05 20:00 | NUR ---
WATER/WASTEWATER ENGINEER NOTE RECEIVED PT IN BED SEMI RIOS POSITION. A/O X 3, NO SOB, NO DISTRESS OR DISCOMFORT NOTED. DENIES PAIN. ON O2 3L VIA N/C O2 SAT 93%. LT LATERAL CHEST WITH CHEST TUBE INTACT AND PATENT ON LOW SUCTIONING, SEROSANGUINEOUS DRAINAGE NOTED. F/C INTACT AND PATENT DRAINING CLOUDY YELLOWISH COLOR URINE. ON TELE MONITOR A FIB CONTROLLED HR 78. REPOSITION HER FOR SKIN MANAGEMENT, KEPT HER DRY AND CLEAN. SWALLOW EVALUATION PENDING. DVT PUMP ON BILATERAL LOWER EXT'S. ALL NEEDS ATTENDED. SIDE RAILS UP X 3 AND CALL LIGHT WITHIN REACH. CONTINUE TO MONITOR HER.
[2017-08-05] MEDS: ACETYLCYSTEINE 20% ORAL SOLN 6,000 MG/30 ML VIAL PO SCH ×2 (20:48→20:49)
--- NOTE | 2017-08-05 21:00 | NUR ---
ADVERTISING SALES AGENT NOTE PHARMACY DELIVERED MUCOMYST LATE, GIVEN ONE DOSE AT THIS TIME, NEXT DOSE IS DUE IN AM. INFORMED PHARMACY THAT MED WAS DUE AT 1800 AND NEXT SCHEDULED AT 2100.
[2017-08-06] VITALS (24 sets, daily range): BP systolic 114–144; BP diastolic 39–96
--- NOTE | 2017-08-06 02:00 | NUR ---
METALLOGRAPHIC TECHNICIAN NOTE PT AWAKE AND ASKING FOR CLEANING UP. BED BATH GIVEN. PT TOLERATED WELL. NO BM AT THIS TIME. NO DISTRESS OR DISCOMFORT NOTED. CHEST TUBE INTACT AND PATENT. ALSO F/C INTACT AND PATENT DRAINING URINE WELL.
--- NOTE | 2017-08-06 04:13 | NUR ---
BONE DENSITY TECHNICIAN NOTE CHEST TUBE CLAMPED AND INFORMED XRAY DEPT TO TAKE C XRAY IN ONE HOUR. CONTINUE TO MONITOR PT.
[2017-08-06 04:45] LABS: HEMATOCRIT 27 % (33-45); HEMOGLOBIN 9.1 g/dL (11.5-14.8); LYMPHOCYTES # (AUTO) 0.5 /CMM (0.8-4.8); MEAN CORPUSCULAR HGB CONC 34 g/dl (31.0-36.0); MEAN CORPUSCULAR VOLUME 89 fL (82-100); MONOCYTES # (AUTO) 0.6 /CMM (0.1-1.30); MONOCYTES % (AUTO) 3.7 % (2.0-12.0); NEUTROPHILS # (AUTO) 14.3 /CMM (1.8-8.9); NEUTROPHILS % (AUTO) 93.3 % (43.0-81.0); PLATELET COUNT (AUTO) 195 /CMM (150-450); RDW COEFFICIENT OF VARIATION 16.6 (11.5-15.0); RED BLOOD CELL COUNT(AUTO) 3.07 MIL/uL (4.0-5.2); WHITE BLOOD COUNT (AUTO) 15.4 K/uL (4.3-11.0)
[2017-08-06 05:07] LABS: CALCIUM, SERUM 7.6 mg/dL (8.5-10.1); CREATININE 1.3 mg/dL (0.6-1.3); GLUCOSE 122 mg/dL (74-106); UREA NITROGEN, BLOOD 64 mg/dL (7-18)
--- NOTE | 2017-08-06 05:15 | NUR ---
CRM ADMINISTRATOR NOTE C XRAY DONE ORDERED AFTER ONE HOUR OF CLAMPING CHEST TUBE. PT IN NO DISTRESS OR DISCOMFORT. O2 SAT 98% ON 3L VIA N/C.
[2017-08-06 05:20] LABS: CARBON DIOXIDE 30 mmol/L (21-32); CHLORIDE 113 mmol/L (98-107); POTASSIUM 3.4 mmol/L (3.5-5.1); SODIUM SERUM 152 mmol/L (136-145)
--- NOTE | 2017-08-06 06:40 | NUR ---
PEARL GLUE DRIER NOTE PT IN BED ASLEEP, EASILY AROUSABLE. NO DISTRESS OR DISCOMFORT NOTED. ON TELE MONITOR A FIB CONTROLLED. F/C INTACT AND PATENT DRAINING YELLOWISH COLOR URINE TOTAL OUTPUT FOR THE SHIFT 1710 ML. CHEST TUBE IS REMAIN CLAMPED WAITING FOR THE C XRAY RESULT. REPOSITION HER Q2H, KEPT HER DRY AND CLEAN. SWALLOW EVAL IS THIS MORNING. SIDE RAILS UP X 3 AND CALL LIGHT WITHIN REACH. WILL ENDORSE TO DAY SHIFT NURSE FOR CONTINUE TO CARE.
--- NOTE | 2017-08-06 07:30 | NUR ---
ICU/RN: Pt received, A&Ox2 with periods of forgetfulness. Breathing even and unlabored on O2 5L/min via NC. HOB elevated, pt with rhonchi throughout, with wet cough and difficulty clearing secretions. CT clamped as ordered, pending CXR results. ЕКАТЕРИНА PICC flushed, patent. FC draining cloudy yellow foul urine to gravity. Pt oriented to POC. Alarm sounds audible will cont to monitor.
--- NOTE | 2017-08-06 08:15 | NUR ---
ICU/RN: Dr Emmanuel at bedside; updated on pt status; per MD, "I reviewed the XR myself, there's no more pneumothorax. We'll keep the CT clamped for one more day, anticipate d/c of CT tomorrow." Pt is clear for KEM. Pt educated, in agreement with plan.
[2017-08-06] MEDS: ACETYLCYSTEINE 20% ORAL SOLN 6,000 MG/30 ML VIAL PO SCH ×2 (09:08→21:01)
[2017-08-06] MEDS: AMPICILLIN 1 GM in IV NS 0.9% 50 ML IV SCH ×2 (09:40→21:01)
[2017-08-06] MEDS: AMIODARONE HCL 200 MG TABLET NG SCH ×3 (09:40→20:51)
[2017-08-06] MEDS: FUROSEMIDE 100 MG/10 ML VIAL IV SCH ×2 (09:57→13:23)
[2017-08-06] MEDS: POTASSIUM CL. PREMIX PERIPHER. 50 ML IV SCH ×4 (10:25→13:37)
[2017-08-06] MEDS: DIGOXIN 0.125 MG TABLET PO SCH (12:37)
--- NOTE | 2017-08-06 13:00 | NUR ---
ICU/RN: Bed bath, hygienic and wound care rendered, pt tolerated well. Wounds s/b Patrizia, gasateria attendant, noted with improvements to sacral and R ear wound. Will cont current tx.
--- NOTE | 2017-08-06 17:00 | NUR ---
ICU/RN: Lyubov Gan NP in for GI f/u; updated on pt status - pt failed swallow eval today, ST to f/u tomorrow.
[2017-08-06] MEDS: SUCRALFATE 1 G/10 ML UDC GT SCH ×2 (17:45→21:03)
[2017-08-06] MEDS: PANTOPRAZOLE 40 MG VIAL IV SCH (17:45)
--- NOTE | 2017-08-06 19:20 | NUR ---
ICU/RN: Pt resting in bed, no distress noted, encouraged to cough and deep breathe. Care endorsed to PM RN for DERRICK.
--- NOTE | 2017-08-06 20:00 | NUR ---
ASSISTANT PROFESSOR OF EDUCATION:" RECEIVED PT AAOX2-3 WITH SOMEWHAT CONFUSION. ON 3 L NC SATURATING 94%. DENIED PAIN. CONTROLLED AFIB ON MONITOR. LEFT SIDE CHEST TUBE LEAKING, CLAMPED, PLAN TO TAKE OUT TOMORROW. ALL SUPPLIED AT BEDSIDE. LEFT SIDE CHEST TUBE LEAKING, MD AWARE. V/S SATBLE. AFEBRILE/ KEEP MONITORING...
[2017-08-07] VITALS (9 sets, daily range): BP systolic 109–147; BP diastolic 45–65
--- NOTE | 2017-08-07 04:33 | NUR ---
MUSIC AUTOGRAPHER: PT STATUS IS KEM, TRANSFERRING TO KEM ROOM 114-2, REPORT GIVEN TO DEBBIE/RN OVER THE PHONE. PT'S VITAL SIGN ARE STABLE, ON MONITOR CONTROLLED AFIB. SATURATING 94-95%. DENIED PAIN.
[2017-08-07 04:58] LABS: EOSINOPHILS % (AUTO) 0.1 % (0.0-6.0); HEMATOCRIT 28 % (33-45); HEMOGLOBIN 9.6 g/dL (11.5-14.8); LYMPHOCYTES # (AUTO) 0.5 /CMM (0.8-4.8); LYMPHOCYTES % (AUTO) 3.8 % (20.0-44.0); MEAN CORPUSCULAR HGB CONC 35 g/dl (31.0-36.0); MEAN CORPUSCULAR VOLUME 87 fL (82-100); MONOCYTES # (AUTO) 0.6 /CMM (0.1-1.30); MONOCYTES % (AUTO) 4.4 % (2.0-12.0); NEUTROPHILS # (AUTO) 12.3 /CMM (1.8-8.9); NEUTROPHILS % (AUTO) 91.7 % (43.0-81.0); PLATELET COUNT (AUTO) 220 /CMM (150-450); RDW COEFFICIENT OF VARIATION 14.8 (11.5-15.0); RED BLOOD CELL COUNT(AUTO) 3.17 MIL/uL (4.0-5.2); WHITE BLOOD COUNT (AUTO) 13.4 K/uL (4.3-11.0)
[2017-08-07 05:14] LABS: ALANINE AMINOTRANSFERASE 48 U/L (12-78); ALBUMIN 2.2 g/dL (3.4-5.0); ALKALINE PHOSPHATASE 75 U/L (46-116); ASPARTATE AMINOTRANSFERASE 70 U/L (15-37); CALCIUM, SERUM 7.8 mg/dL (8.5-10.1); CARBON DIOXIDE 35 mmol/L (21-32); CHLORIDE 110 mmol/L (98-107); CREATININE 1.3 mg/dL (0.6-1.3); GLUCOSE 117 mg/dL (74-106); MAGNESIUM 2.8 mg/dL (1.8-2.4); PHOSPHORUS 3.6 mg/dL (2.5-4.9); POTASSIUM 3.1 mmol/L (3.5-5.1); SODIUM SERUM 151 mmol/L (136-145); TOTAL PROTEIN, SERUM 5.8 g/dL (6.4-8.2); UREA NITROGEN, BLOOD 55 mg/dL (7-18)
--- NOTE | 2017-08-07 05:15 | NUR ---
RN NOTE RECEIVED PATIENT FROM ICU, DX PNEUMOTHORAX, NO RESPIRATORY DISTRESS NOTED, VITAL SIGNS: TEMPERATURE 97.6F, BP 146/60, PULSE 73, SO2 93, ALERT/ORIENTED X 1, CONFUSED. A-FIB ON THE MONITOR, DENIES PAIN OR DISCOMFORT, AMRTINEZ IS INTACT, NPO EXCEPT MEDS, CHEST TUBE CLAMPED, BELONGINGS LIST IS DONE AND IN THE CHART, ЕКАТЕРИНА PICC LINE, NO S/S OF INFECTION/INFILTRATION NOTED, FLUSHES WELL, ALL SAFETY MEASURES TAKEN, BED IN THE LOWEST POSITION, CALL LIGHT WITHIN REACH, ALL BELONGINGS WITHIN REACH, BED ALARM IS ACTIVATED AND CHECKED PRIOR, WILL CONTINUE TO MONITOR
--- NOTE | 2017-08-07 07:55 | NUR ---
RN KEM NOTES RESIDENT IN BED WITH 3L NASAL CANNULA.AXOX1.SATURATING 95%.ON TELE MONITOR A FIB HR 73.HAS F/C WITH YELLOW URINE.NPO ,OK TO HAVE ICE CHIPS.CHEST TUBE IS ON LEFT SIDE IS CLAMPED PER DOCTORS ORDER. WAITING FOR SWALLOW EVAL.LOY PICC LINE.BED IS LOW AND LOCKED POSITION.CALL LIGHT IN REACH.CONTINUE TO MONITOR.
[2017-08-07] MEDS: SUCRALFATE 1 G/10 ML UDC GT SCH ×4 (08:07→21:51)
[2017-08-07] MEDS: AMIODARONE HCL 200 MG TABLET NG SCH ×3 (08:08→21:55)
[2017-08-07] MEDS: PANTOPRAZOLE 40 MG VIAL IV SCH ×2 (08:08→16:51)
[2017-08-07] MEDS: ACETYLCYSTEINE 20% ORAL SOLN 6,000 MG/30 ML VIAL PO SCH ×2 (08:14→21:55)
[2017-08-07] MEDS: AMPICILLIN 1 GM in IV NS 0.9% 50 ML IV SCH ×2 (08:19→21:51)
[2017-08-07] MEDS: HYDROCODONE/APAP 5/325MG 1 EACH TABLET PO PRN (08:37)
[2017-08-07 09:26] LABS: ABG BASE EXCESS 8.1 mmol/L; ABG OXYGEN SATURATION 92.9 % (92.0-98.5); ABG PH 7.542 (7.350-7.450); ABG PO2 65.2 mmHg (75.0-100.0); AaDO2 90.8 mmHg; COHb 0.3 % (0.5-1.5); MetHb 0.6 % (0.0-1.5); O2Hb 92.1 % (94.0-97.0); SITE, ABG Left Radial; VENT MODE, BG 2L NC
--- NOTE | 2017-08-07 10:17 | NUR ---
KEM RN NOTES PHYSICAL THERAPY WAS AT BED SIDE .PATIENT ABLE TO STAND UP WITH MINIMAL ASSISTANCE. WAS AT BED SIDE ,STATED CONTINUE CLAMPING CHEST TUBE,POSSIBLE REMOVAL TOMORROW.
--- NOTE | 2017-08-07 11:14 | NUR ---
MS RN NOTES ABG DONE ,RESULT NOTIFIED TO .CONTINUE O2 ON 2L.
[2017-08-07] MEDS: POTASSIUM CHLORIDE 20 MEQ TAB.PRT.SR PO SCH ×2 (11:19→12:24)
--- NOTE | 2017-08-07 11:50 | NUR ---
MS RN NOTES SEEN BY ,SWALLOW EVEL DONE.PATIENT WILL HAVE PUREE DIET.
--- NOTE | 2017-08-07 12:00 | NUR ---
MS RN NOTE SEEN BY CHAZ RN POPULATION GENETICIST NOTIFIED THAT PATIENT GET RESTLESS AT TIME AND TRY TO REMOVE ALL LINE ,STATED OK TO GIVE NORCO PRN WILL F\U
[2017-08-07] MEDS: DIGOXIN 0.125 MG TABLET PO SCH (12:26)
--- NOTE | 2017-08-07 15:00 | NUR ---
MS RN NOTE RESTING COMFORTABLY IN BED AT THIS TIME ,ALL NEEDS ATTENDED . NOT IN ACUTE DISTRESS
--- NOTE | 2017-08-07 18:39 | NUR ---
MS RN SHIFT END NOTES PATIENT IS AXOX2.ON BED WITH PERIODS OF CONFUSION.ON OXYGEN VIA NASAL CANNULA 2L.NO DISTRESS NOTICED DURING CARE.MARTINEZ CATH DRAINING YELLOW URINE.PICC LINE IS PATENT DRESSING INTACT.CHEST TUBE CLAMPED PER DOCTORS ORDER.BED LOCKED AND IN LOW POSITION,SRC UP X3.CALL LIGHT IN REACH.ALL NEEDS MET.WILL ENDORSE TO PM NURSE FOR CONTINUITY OF CARE.
--- NOTE | 2017-08-07 19:35 | NUR ---
MS RN INITIAL NOTE PT IS IN BED SLEEPING, EASILY AROUSED. NO SIGNS OF SOB OR DISTRESS, BREATHING EVENLY AND UNLABORED ON 2L NC. MARTINEZ CATHETER IS INTACT AND PATENT. CHEST TUBE IS IN PLACE AND CLAMPED, DRAINAGE AT 1550 ML. ENDORSED TO ME THAT CHEST TUBE IS LEAKING BUT MD IS AWARE. BED IS IN LOW AND LOCKED POSITION, BED ALARM IS ON. WILL CONTINUE TO MONITOR PT
[2017-08-08 04:00] VITALS: BP 122/81
--- NOTE | 2017-08-08 06:53 | NUR ---
MS RN CLOSING NOTE PT IS IN BED RESTING. NO SIGNS OF SOB OR DISTRESS, BREATHING EVENLY AND UNLABORED. CHEST TUBE DRESSING CHANGED AND REINFORCED, CLAMPED AT 2 PLACES. MARTINEZ CATHETER IS INTACT AND DRAINING. NO ACUTE CHANGES THROUGHOUT THE SHIFT. ALL NEEDS WERE ANTICIPATED AND MET.BED IS IN LOW AND LOCKED POSITION, BED ALARM IS ON. WILL ENDORSE TO DAYSHIFT
--- NOTE | 2017-08-08 07:30 | NUR ---
RN INITIAL NOTES: Received in bed, eyes closed, no distress noted. O2 at 2L nasal cannula. L side dressing intact. jaime cath draining well. Bed low and locked. call light within reached. will cont to monitor.
[2017-08-08 07:41] LABS: CALCIUM, SERUM 7.9 mg/dL (8.5-10.1); CARBON DIOXIDE 33 mmol/L (21-32); CHLORIDE 113 mmol/L (98-107); CREATININE 1.2 mg/dL (0.6-1.3); GLUCOSE 124 mg/dL (74-106); POTASSIUM 3.2 mmol/L (3.5-5.1); SODIUM SERUM 152 mmol/L (136-145); UREA NITROGEN, BLOOD 51 mg/dL (7-18)
[2017-08-08 07:47] LABS: BASOPHILS % (AUTO) 0.1 % (0.0-2.0); HEMATOCRIT 27 % (33-45); HEMOGLOBIN 9.3 g/dL (11.5-14.8); LYMPHOCYTES # (AUTO) 0.4 /CMM (0.8-4.8); LYMPHOCYTES % (AUTO) 3.7 % (20.0-44.0); MEAN CORPUSCULAR HGB CONC 35 g/dl (31.0-36.0); MEAN CORPUSCULAR VOLUME 88 fL (82-100); MONOCYTES # (AUTO) 0.4 /CMM (0.1-1.30); MONOCYTES % (AUTO) 3.4 % (2.0-12.0); NEUTROPHILS # (AUTO) 10.7 /CMM (1.8-8.9); NEUTROPHILS % (AUTO) 91.8 % (43.0-81.0); PLATELET COUNT (AUTO) 218 /CMM (150-450); RDW COEFFICIENT OF VARIATION 14.8 (11.5-15.0); RED BLOOD CELL COUNT(AUTO) 3.06 MIL/uL (4.0-5.2); WHITE BLOOD COUNT (AUTO) 11.6 K/uL (4.3-11.0)
[2017-08-08 08:00] VITALS: BP 142/64
[2017-08-08] MEDS: AMPICILLIN 1 GM in IV NS 0.9% 50 ML IV SCH ×2 (08:29→21:18)
[2017-08-08] MEDS: SUCRALFATE 1 G/10 ML UDC GT SCH ×4 (08:29→21:18)
[2017-08-08] MEDS: PANTOPRAZOLE 40 MG VIAL IV SCH (08:29)
[2017-08-08] MEDS: AMIODARONE HCL 200 MG TABLET NG SCH ×3 (08:30→21:19)
[2017-08-08] MEDS: PANTOPRAZOLE 40 MG TABLET.DR PO SCH (09:56)
[2017-08-08] MEDS: ACETYLCYSTEINE 20% ORAL SOLN 6,000 MG/30 ML VIAL PO SCH ×2 (09:56→21:18)
--- NOTE | 2017-08-08 10:10 | NUR ---
Notified Dr Emmanuel regarding CXR result which showed CT is not on thoracic cage anymore. Dr Emmanuel stated that he will come see pt later in the afternoon and will remove it. Pt appears to have no signs and symptoms of any acute distress. will continue to monitor.
[2017-08-08] MEDS: POTASSIUM CHLORIDE 20 MEQ TAB.PRT.SR PO SCH ×2 (11:23→13:27)
[2017-08-08 12:00] VITALS: BP 132/96
[2017-08-08] MEDS ORDERED: Potassium Chloride 40 MEQ in IV D5W 1,000 ML IV PRN (12:13)
--- NOTE | 2017-08-08 12:30 | NUR ---
RN NOTES: L chest tube noted to have came off. skin care done, noted redness on surrounding area, z guard applied and dressing changed. Notified Dr Emmanuel of complete chest tube dislodgement. will continue to monitor.
[2017-08-08] MEDS ORDERED: POTASSIUM CHLORIDE 20 MEQ TAB.PRT.SR PO SCH (13:30)
[2017-08-08] MEDS: DIGOXIN 0.125 MG TABLET PO SCH (13:32)
[2017-08-08 16:00] VITALS: BP 125/57
--- NOTE | 2017-08-08 18:30 | NUR ---
RN CLOSING NOTES: Resting comfortably, assisted with feeding with each meal. dressing changed done on L side for oozing and draining. jaime cath patent. no c/o pain. bed low and locked. call light within reached.
--- NOTE | 2017-08-08 19:20 | NUR ---
RN M/S INITIAL NOTE RECEIVED PATIENT RESTING COMFORTABLY WITH HOB ELEVATED, AOX1-2 WITH CONFUSION, SPEECH CLEAR, ABLE TO MAKE NEEDS KNOWN, DENIES PAIN, MARTINEZ CATHETER DRAINING TO GRAVITY, SKIN KEPT CLEAN AND DRY, LOY PICC LINE PATENT FLUSHING WELL, BED IN LOW LOCKED POSITION, SAFETY MAINTAINED AT ALL TIMES. WILL CONTINUE TO MONITOR FOR ANY CHANGES IN CONDITION.
[2017-08-08 20:00] VITALS: BP_SYST 139; BP_SYST 154; BP_DIAS 61; BP_DIAS 73
[2017-08-09] VITALS: BP 147/70
[2017-08-09 04:00] VITALS: BP 148/63
[2017-08-09 08:00] VITALS: BP_SYST 144; BP_SYST 160; BP_DIAS 57; BP_DIAS 70
[2017-08-09] MEDS: SUCRALFATE 1 G/10 ML UDC GT SCH ×3 (08:17→17:30)
[2017-08-09] MEDS: PANTOPRAZOLE 40 MG TABLET.DR PO SCH (08:18)
[2017-08-09] MEDS: AMPICILLIN 1 GM in IV NS 0.9% 50 ML IV SCH (08:18)
[2017-08-09] MEDS: AMIODARONE HCL 200 MG TABLET NG SCH ×2 (08:19→13:40)
[2017-08-09] MEDS: ACETYLCYSTEINE 20% ORAL SOLN 6,000 MG/30 ML VIAL PO SCH (09:00)
--- NOTE | 2017-08-09 09:15 | NUR ---
RN OPENING NOTE RECEIVED PT PER DAYSHIFT HANDOFF. PT SLEEPING IN BED. NO S/S OF RESP DISTRESS OR SOB. PT IS ON O2 2L VIA NC WITH O2 SAT WNL. TELE MONITOR READING SR AT 85-90. GT JEVITY INFUSING AT 70 CC/HR. IV ACCESS LOCATED ON RIGHT WRIST 18G SL. SAFETY MEASURES IN PLACE, CALL LIGHT IN REACH. WILL CONTINUE TO MONITOR.
[2017-08-09 12:10] LABS: CALCIUM, SERUM 7.7 mg/dL (8.5-10.1); CARBON DIOXIDE 32 mmol/L (21-32); CHLORIDE 110 mmol/L (98-107); CREATININE 1.2 mg/dL (0.6-1.3); GLUCOSE 106 mg/dL (74-106); POTASSIUM 3.3 mmol/L (3.5-5.1); SODIUM SERUM 147 mmol/L (136-145); UREA NITROGEN, BLOOD 45 mg/dL (7-18)
[2017-08-09] MEDS: DIGOXIN 0.125 MG TABLET PO SCH (13:00)
[2017-08-09] MEDS ORDERED: APIX2.5T PO (14:55)
[2017-08-09] MEDS ORDERED: AMIO200T7 NG (14:55)
[2017-08-09] MEDS ORDERED: SUCR1ORA6 GT (14:55)
[2017-08-09] MEDS ORDERED: Digoxin PO (14:55)
[2017-08-09] MEDS ORDERED: PANT40TA2 PO (14:55)
[2017-08-09] MEDS ORDERED: POTASSIUM CHLORIDE 20 MEQ TAB.PRT.SR PO ONE (15:30)
--- NOTE | 2017-08-09 17:47 | NUR ---
RN NOTES REPORT CALLED IN TO [facility], RECEIVED BY DAVIN GARZA. .
--- NOTE | 2017-08-09 19:45 | NUR ---
RN CLOSING NOTES PT IN BED RESTING. ALL PT NEEDS ANTICIPATED AND MET. SAFETY MEASURES IN PLACE, CALL LIGHT IN REACH. ENDORSED TO COLORED LIQUID PLASTIC APPLIER FOR DERRICK.
--- NOTE | 2017-08-09 19:45 | NUR ---
MS/CENTRAL OFFICE REPAIRER SUPERVISOR; RECEIVED PT IN BED AWAKE, ALERT AND VERBALLY RESPONSIVE. BREATHING NON LABORED. WITH O2 2L NC ON WITH FC YELLOW URINE OUTPUT. PICC LINE INTACT ON ЕКАТЕРИНА WITH IVAB ON PROGRESS GIVEN BY THE DAY SHIFT PRIOR TO DC. ARMS AM\ND LEGS ARE SWOLLEN. BED ON LOWER POSITION AND LOCKED FOR SAFETY. SIDE RAILS ARE UP FOR SAFETY. CONTINUE TO MONITOR.
[2017-08-09 20:00] VITALS: BP 116/51
--- NOTE | 2017-08-09 20:00 | NUR ---
MS/SPECK DYER; AMBULANCE CAME TO TUBE COATER FOR DC. I INFORMED CHARGE NURSE REGARDING PICC LINE TO BE DC ENDORSED BY THE DAY SHIFT RN. I ALSO INFORMED CHRISTOPHER MORGAN NP IF TO DC HE LONG ASS THERE IS NO IVAB TO CONTINUE REMOVE IT.
--- NOTE | 2017-08-09 20:30 | NUR ---
MS/INSIDE SALES LEAD; I INFORMED AGAIN KORY CHARGE NURSE OF THE PICC LINE AND SHE SAID DC THE PICC LINE. SO I INFORMED MY RN WHO IS COVERING ME CELWYN AND SHE DC THE PICC LINE. REPORTS WHERE GIVEN TO THE AMBULANCE MEL.
--- NOTE | 2017-08-09 20:40 | NUR ---
MS/WAD LUBRICATOR; PT DC VIA AMBULANCE WITH O2 AND FC AND ALS DC PAPERS GIVEN TO THE AMBULANCE STAFF.
== END 2017-08-09 20:30 | DRG 207 ==
LOC: ER 16:40 → TELE1 18:13 → ICU 20:21 → TELE-TD 08-07 04:45 → MEDSG1 08-07 10:55
PROVIDERS: ADMIT Internal Medicine; ATTEND Internal Medicine
PROC: 0W9B00Z Drainage of Left Pleural Cavity with Drainage Device, Open Approach (ICD-10-PCS; principal; 2017-07-24)
PROC: 30233N1 Transfusion of Nonautologous Red Blood Cells into Peripheral Vein, Percutaneous Approach (ICD-10-PCS; 2017-07-25)
PROC: 5A1955Z Respiratory Ventilation, Greater than 96 Consecutive Hours (ICD-10-PCS; 2017-07-26)
PROC: 0BH17EZ Insertion of Endotracheal Airway into Trachea, Via Natural or Artificial Opening (ICD-10-PCS; 2017-07-26)
PROC: 02HV33Z Insertion of Infusion Device into Superior Vena Cava, Percutaneous Approach (ICD-10-PCS; 2017-07-27)
PROC: B548ZZA Ultrasonography of Superior Vena Cava, Guidance (ICD-10-PCS; 2017-07-27)
PROC: 0DB58ZX Excision of Esophagus, Via Natural or Artificial Opening Endoscopic, Diagnostic (ICD-10-PCS; 2017-08-04)
PROC: 0DB68ZX Excision of Stomach, Via Natural or Artificial Opening Endoscopic, Diagnostic (ICD-10-PCS; 2017-08-04)
DX: S22.42XA Multiple fractures of ribs, left side, initial encounter for closed fracture (principal); N17.0 Acute kidney failure with tubular necrosis; J90 Pleural effusion, not elsewhere classified; J18.9 Pneumonia, unspecified organism; D61.818 Other pancytopenia; E44.0 Moderate protein-calorie malnutrition; L89.159 Pressure ulcer of sacral region, unspecified stage; S27.2XXA Traumatic hemopneumothorax, initial encounter; J96.01 Acute respiratory failure with hypoxia; J96.02 Acute respiratory failure with hypercapnia; D68.9 Coagulation defect, unspecified; D62 Acute posthemorrhagic anemia; E87.0 Hyperosmolality and hypernatremia; N39.0 Urinary tract infection, site not specified; I95.9 Hypotension, unspecified; I48.91 Unspecified atrial fibrillation; Y92.89 Other specified places as the place of occurrence of the external cause; Z86.73 Personal history of transient ischemic attack (TIA), and cerebral infarction without residual deficits; W01.0XXA Fall on same level from slipping, tripping and stumbling without subsequent striking against object, initial encounter; Z98.890 Other specified postprocedural states; Z79.01 Long term (current) use of anticoagulants; Z79.899 Other long term (current) drug therapy; Z66 Do not resuscitate; D50.9 Iron deficiency anemia, unspecified; T39.95XA Adverse effect of unspecified nonopioid analgesic, antipyretic and antirheumatic, initial encounter; L89.899 Pressure ulcer of other site, unspecified stage; K20.9 Esophagitis, unspecified; K29.70 Gastritis, unspecified, without bleeding; B96.20 Unspecified Escherichia coli [E. coli] as the cause of diseases classified elsewhere; E87.6 Hypokalemia; E03.9 Hypothyroidism, unspecified; B95.2 Enterococcus as the cause of diseases classified elsewhere
CPT/HCPCS: 31720; 32551; 36415; 36569; 36600; 71045-TC; 71100-TC; 80048-TC; 80053-TC; 80061-TC; 81000-TC; 82272-TC; 82306; 82570-TC; 82728-TC; 82803-TC; 83540-TC; 83735-TC; 84100-TC; 84300-TC; 84439-TC; 84443-TC; 84484-TC; 85025-TC; 85610-TC; 85730-TC; 86850-TC; 87070-TC; 87081-TC; 87086-TC; 87186-TC; 88305-TC; 88313-TC; 88342; 92526; 92611-TC; 93307-TC; 94002-TC; 94003-TC; 94760-TC; 94762-TC; 94799-TC; A4216; A4606; A6253; A6402; A6403; C1751; C9113; J0282; J0290; J0696; J1170; J1940; J2060; J2270; J2370; J2405; J2704; J2916; J3010; J3480; J3490; J7030; J7040; J7050; J7060; J7070; P9017-BL; P9047; Z7610